=== PATIENT | female | born 1940 | race Caucasian/White ===

== ENCOUNTER 2017-10-25 16:28 | Inpatient (IN) | payer MEDICARE, MEDICAID ==
[~2017-10-25] VITALS: Ht 162.6 cm; Wt 111.3 kg
[~2017-10-25 16:28] MED LIST: TYLENOL325 MG ORAL
[2017-10-25 17:12] VITALS: BP 124/59
[2017-10-25 17:29] LABS: BASOPHILS % (AUTO) 1.6 % (0.0-2.0); EOSINOPHILS % (AUTO) 1.9 % (0.0-3.0); HEMATOCRIT 38.9 % (37.0-47.0); HEMOGLOBIN 12.2 G/DL (12.0-16.0); LYMPHOCYTES % (AUTO) 22.5 % (20.0-45.0); MEAN CORPUSCULAR VOLUME 79 FL (80-99); NEUTROPHILS % (AUTO) 60.1 % (45.0-75.0); PLATELET COUNT 168 K/UL (150-450); RED BLOOD COUNT 4.95 M/UL (4.20-5.40); RED CELL DISTRIBUTION WIDTH 19.4 % (11.6-14.8); WHITE BLOOD COUNT 5.9 K/UL (4.8-10.8)
[2017-10-25 17:34] LABS: ANION GAP 9 mmol/L (5-15); BLOOD UREA NITROGEN 10 mg/dL (7-18); CALCIUM 9.3 MG/DL (8.5-10.1); CARBON DIOXIDE 26 MMOL/L (21-32); CHLORIDE 107 MMOL/L (98-107); CREATININE 0.9 MG/DL (0.55-1.30); POTASSIUM 3.8 MMOL/L (3.5-5.1); SODIUM 142 MMOL/L (136-145)
--- NOTE | 2017-10-25 17:40 | Cardiac Electrophysiology PN ---
Subjective Subjective [id number] Objective Last 24 Hour Vital Signs Date Time Temp Pulse Resp B/P (MAP) Pulse Ox O2 Delivery O2 Flow Rate FiO2 10/25/17 17:12 101 28 124/59 94 Room Air 10/25/17 16:21 98.0 100 18 117/62 99 Room Air 98.1 Laboratory Tests Test 10/25/17 17:05 White Blood Count 5.9 K/UL (4.8-10.8) Red Blood Count 4.95 M/UL (4.20-5.40) Hemoglobin 12.2 G/DL (12.0-16.0) Hematocrit 38.9 % (37.0-47.0) Mean Corpuscular Volume 79 FL (80-99) L Mean Corpuscular Hemoglobin 24.6 PG (27.0-31.0) L Mean Corpuscular Hemoglobin Concent 31.3 G/DL (32.0-36.0) L Red Cell Distribution Width 19.4 % (11.6-14.8) H Platelet Count 168 K/UL (150-450) Mean Platelet Volume 9.0 FL (6.5-10.1) Neutrophils (%) (Auto) 60.1 % (45.0-75.0) Lymphocytes (%) (Auto) 22.5 % (20.0-45.0) Monocytes (%) (Auto) 14.0 % (1.0-10.0) H Eosinophils (%) (Auto) 1.9 % (0.0-3.0) Basophils (%) (Auto) 1.6 % (0.0-2.0) Sodium Level 142 MMOL/L (136-145) Potassium Level 3.8 MMOL/L (3.5-5.1) Chloride Level 107 MMOL/L (98-107) Carbon Dioxide Level 26 MMOL/L (21-32) Anion Gap 9 mmol/L (5-15) Blood Urea Nitrogen 10 mg/dL (7-18) Creatinine 0.9 MG/DL (0.55-1.30) Estimat Glomerular Filtration Rate mL/min (>60) Glucose Level 118 MG/DL (74-106) H Calcium Level 9.3 MG/DL (8.5-10.1) Total Bilirubin Pending Aspartate Amino Transf (AST/SGOT) Pending Alanine Aminotransferase (ALT/SGPT) Pending Alkaline Phosphatase Pending Total Creatine Kinase Pending Creatine Kinase MB Pending Troponin I Pending Pro-B-Type Natriuretic Peptide Pending Total Protein Pending Albumin Pending Globulin Pending Paul Salas MD October 25, 2017 17:40
[2017-10-25] MEDS ORDERED: XARELTO20 MG ORAL (17:46)
[2017-10-25] MEDS ORDERED: LISINOPRIL10 MG ORAL (17:46)
[2017-10-25] MEDS ORDERED: DIGOXIN250 MCG ORAL (17:46)
[2017-10-25 17:49] LABS: ALANINE AMINOTRANSFERASE 16 U/L (12-78); ALBUMIN 3.6 G/DL (3.4-5.0); ALBUMIN/GLOBULIN RATIO 0.8 (1.0-2.7); ALKALINE PHOSPHATASE 88 U/L (46-116); ASPARTATE AMINO TRANSFERASE 20 U/L (15-37); BILIRUBIN,DIRECT 0.8 MG/DL (0.0-0.3); CKMB 0.8 NG/ML (0.0-3.6); CREATINE KINASE 42 U/L (26-308)
--- NOTE | 2017-10-25 18:13 | Emergency Room Report ---
History of Present Illness General Chief Complaint: Generalized Weakness Source: Patient Present Illness HPI 76-year-old female who presents ED for evaluation. Patient brought in by EMS for increased shortness of breath and weakness. Leg swelling. History of CHF. Noncompliant with her medications. Came from PMD office Dr. Hansen. Denies any chest pain. Denies any fevers or chills. Denies cough. States symptoms have been persisting for several weeks now but got worse in the last week. Patient also states she doesn't have a place to live. Has been living in a garage until today. No other aggravating relieving factors. Denies any other associated symptoms Allergies: Coded Allergies: SULFA (SULFONAMIDE ANTIBIOTICS) (Verified Allergy, Severe, 03/23/15) Patient History Past Medical History: HTN, CHF Past Surgical History: none Pertinent Family History: none Social History: Denies: smoking, alcohol use, drug use Now: No Immunizations: UTD Reviewed Nursing Documentation: PMH: Agreed; PSxH: Agreed Nursing Documentation-PMH Hx Hypertension: Yes Hx Diabetes: Yes - menier's, hepatitis Review of Systems All Other Systems: negative except mentioned in HPI Physical Exam Vital Signs Date Time Temp Pulse Resp B/P (MAP) Pulse Ox O2 Delivery O2 Flow Rate FiO2 10/25/17 16:21 98.0 100 18 117/62 99 Room Air 98.1 Sp02 EP Interpretation: reviewed, normal General Appearance: no apparent distress, alert, GCS 15, non-toxic Head: normocephalic, atraumatic Eyes: bilateral eye normal inspection, bilateral eye PERRL ENT: hearing grossly normal, normal pharynx, no angioedema, normal voice Neck: full range of motion, supple/symm/no masses Respiratory: chest non-tender, lungs clear, normal breath sounds, speaking full sentences Cardiovascular #1: regular rate, rhythm, no edema Cardiovascular #2: 2+ carotid (R), 2+ carotid (L), 2+ radial (R), 2+ radial (L) , 2+ dorsalis pedis (R), 2+ dorsalis pedis (L) Gastrointestinal: normal bowel sounds, non tender, soft, non-distended, no guarding, no rebound Rectal: deferred Genitourinary: normal inspection, no CVA tenderness Musculoskeletal: back normal, gait/station normal, normal range of motion, swelling - 2+ pitting edema b/l LEs Neurologic: alert, oriented x3, responsive, motor strength/tone normal, sensory intact, speech normal Psychiatric: judgement/insight normal, memory normal, mood/affect normal, no suicidal/homicidal ideation Reflexes: 3+ bicep (R), 3+ bicep (L), 3+ tricep (R), 3+ tricep (L), 3+ knee (R) , 3+ knee (L) Skin: normal color, no rash, warm/dry, well hydrated Lymphatic: no adenopathy Medical Decision Making Diagnostic Impression: Primary Impression: CHF exacerbation Qualified Codes: I50.9 - Heart failure, unspecified Additional Impression: Atrial fibrillation Qualified Codes: I48.91 - Unspecified atrial fibrillation ER Course Hospital Course 76-year-old female presents ED complaining of shortness of breath, leg swelling Differential diagnoses include: DE/unstable angina, contusion, muscle strain, PTX, rib fracture Clinical course Patient placed on stretcher. on roll filler. After initial history and physical I ordered labs, EKG, chest x-ray, dopplers labs reviewed- no leukocytosis, hemoglobin/hematocrit stable, creatinine elevated, troponins negative, BNP elevated doppler US - negative for DVT Chest x-ray- pulmonary congestion, effusion ? infiltrate. EKG - afib, no acute ischemic changes interpreted by me patient afebrile. denying cough. Lasix given. abx given. Case discussed with Dr. Hansen and he agreed to accept the patient to his service for further care and support I. I feel this is a highly complex case requiring extensive working including EKG/Rhythm strip, Xray/CT/US, Blood/urine lab work, repeat exams while in ED, and administration of strong opiates/narcotics for pain control, admission to hospital or close patient follow up. Diagnosis - CHF exacerbation, atrial fibrillation admitted to telemetry in serious condition Labs Test 10/25/17 17:05 White Blood Count 5.9 K/UL (4.8-10.8) Red Blood Count 4.95 M/UL (4.20-5.40) Hemoglobin 12.2 G/DL (12.0-16.0) Hematocrit 38.9 % (37.0-47.0) Mean Corpuscular Volume 79 FL (80-99) Mean Corpuscular Hemoglobin 24.6 PG (27.0-31.0) Mean Corpuscular Hemoglobin Concent 31.3 G/DL (32.0-36.0) Red Cell Distribution Width 19.4 % (11.6-14.8) Platelet Count 168 K/UL (150-450) Mean Platelet Volume 9.0 FL (6.5-10.1) Neutrophils (%) (Auto) 60.1 % (45.0-75.0) Lymphocytes (%) (Auto) 22.5 % (20.0-45.0) Monocytes (%) (Auto) 14.0 % (1.0-10.0) Eosinophils (%) (Auto) 1.9 % (0.0-3.0) Basophils (%) (Auto) 1.6 % (0.0-2.0) Sodium Level 142 MMOL/L (136-145) Potassium Level 3.8 MMOL/L (3.5-5.1) Chloride Level 107 MMOL/L (98-107) Carbon Dioxide Level 26 MMOL/L (21-32) Anion Gap 9 mmol/L (5-15) Blood Urea Nitrogen 10 mg/dL (7-18) Creatinine 0.9 MG/DL (0.55-1.30) Estimat Glomerular Filtration Rate mL/min (>60) Glucose Level 118 MG/DL (74-106) Calcium Level 9.3 MG/DL (8.5-10.1) Total Bilirubin 2.0 MG/DL (0.2-1.0) Direct Bilirubin 0.8 MG/DL (0.0-0.3) Aspartate Amino Transf (AST/SGOT) 20 U/L (15-37) Alanine Aminotransferase (ALT/SGPT) 16 U/L (12-78) Alkaline Phosphatase 88 U/L (46-116) Total Creatine Kinase 42 U/L (26-308) Creatine Kinase MB 0.8 NG/ML (0.0-3.6) Creatine Kinase MB Relative Index 1.9 Troponin I 0.000 ng/mL (0.000-0.056) Pro-B-Type Natriuretic Peptide 606 pg/mL (0-125) Total Protein 7.9 G/DL (6.4-8.2) Albumin 3.6 G/DL (3.4-5.0) Globulin 4.3 g/dL Albumin/Globulin Ratio 0.8 (1.0-2.7) EKG Diagnostic Results Rate: normal Rhythm: other - afib ST Segments: no acute changes ASA given to the pt in ED: No Rhythm Strip Diag. Results EP Interpretation: yes Rhythm: NSR, no PVC's, no ectopy Chest X-Ray Diagnostic Results Chest X-Ray Diagnostic Results : Chest X-Ray Ordered: Yes # of Views/Limited/Complete: 1 View Indication: Shortness of Breath EP Interpretation: Yes Interpretation: no consolidation, no pneumothorax, other - cardiomegaly. effusion Impression: Other - chf Electronically Signed by: Electronically signed by Marcellus Spears MD CT/MRI/US Diagnostic Results CT/MRI/US Diagnostic Results : Imaging Test Ordered: venous duplex Impression no evidence of DVT bilaterally Last Vital Signs Date Time Temp Pulse Resp B/P (MAP) Pulse Ox O2 Delivery O2 Flow Rate FiO2 10/25/17 17:12 101 28 124/59 94 Room Air 10/25/17 16:21 98.0 98.1 Status: improved Disposition: ADMITTED INPATIENT Condition: Serious Marcellus Spears MD October 25, 2017 18:13
[2017-10-25 19:30] VITALS: BP 112/69
[2017-10-25 21:10] VITALS: BP 117/56
[2017-10-25 22:00] VITALS: BP 120/58
--- NOTE | 2017-10-25 22:15 | Consultation ---
DATE OF CONSULTATION: 10/25/2017 CARDIOLOGY CONSULTATION CONSULTING PHYSICIAN: Paul Salas M.D. REFERRING PHYSICIAN: Caio Hansen M.D. REASON FOR CONSULTATION: Shortness of breath, lower extremity edema, as well as atrial fibrillation. HISTORY OF PRESENT ILLNESS: The patient is a very pleasant 76-year-old lady with history of hypertension and paroxysmal atrial fibrillation, who was brought in by ambulance from Dr. Hansen's office for increasing shortness of breath and increasing lower extremity edema. The patient has also recently become homeless and wants a placement in assisted living facility. PAST MEDICAL HISTORY: 1. Hypertension. 2. Atrial fibrillation. 3. Congestive heart failure. MEDICATIONS: Per reconciliation and includes digoxin and Xarelto. FAMILY HISTORY: Noncontributory. REVIEW OF SYSTEMS: Review of systems was performed and was negative other than what was mentioned in the history of present illness. PHYSICAL EXAMINATION: VITAL SIGNS: Blood pressure is 110/70, pulse of 70, respirations of 18, and she is afebrile. HEAD AND NECK: Shows no JVD or carotid bruits. LUNGS: Decreased breath sounds. CARDIOVASCULAR: Regular S1 and S2 with no gallop or murmur. ABDOMEN: Soft. EXTREMITIES: Show 2+ pitting edema. LABORATORY DATA: Labs show white count of 5.9, hemoglobin 12.2, hematocrit of 38.9, and platelet count of 168,000. Chemistry is pending. ASSESSMENT AND PLAN: 1. Exacerbation of congestive heart failure. lower extremity edema. We will start the patient on Lasix 40 mg IV b.i.d. We will get an echocardiogram and lower extremity Doppler. Troponin and BNP is pending. 2. Atrial fibrillation, the rate is slightly elevated. We will check digoxin level. We will start the patient on metoprolol 25 mg b.i.d. and digoxin. 3. Hypertension. Continue Lopressor, that will help the atrial fibrillation as well. 4. Homelessness. Placement in assisted living per Dr. Hansen. Thank you very much, Dr. Hansen, for allowing me to participate in the care of this patient. Please do not hesitate to contact me if you have any questions regarding my evaluation. The case was discussed with the emergency room physician and Dr. Hansen as well. Paul Salas M.D. DR: MICHAEL JOB#: [id number] CC:
[2017-10-25] MEDS: Metoprolol 25mg tab ORAL SCH (22:31)
[2017-10-25] MEDS: Docusate 100mg cap ORAL SCH (22:31)
[2017-10-26] VITALS: BP 106/53
[2017-10-26 04:00] VITALS: BP 106/57
[2017-10-26 07:20] LABS: BASOPHILS % (AUTO) 1.2 % (0.0-2.0); HEMATOCRIT 37.2 % (37.0-47.0); HEMOGLOBIN 11.6 G/DL (12.0-16.0); LYMPHOCYTES % (AUTO) 21.2 % (20.0-45.0); MEAN CORPUSCULAR VOLUME 79 FL (80-99); MONOCYTES % (AUTO) 13.4 % (1.0-10.0); NEUTROPHILS % (AUTO) 61.2 % (45.0-75.0); PLATELET COUNT 160 K/UL (150-450); RED BLOOD COUNT 4.73 M/UL (4.20-5.40); RED CELL DISTRIBUTION WIDTH 19.2 % (11.6-14.8); WHITE BLOOD COUNT 6.3 K/UL (4.8-10.8)
[2017-10-26 07:33] LABS: INR 1.6 (0.9-1.1)
[2017-10-26 07:50] LABS: ALANINE AMINOTRANSFERASE 16 U/L (12-78); ALBUMIN 3.5 G/DL (3.4-5.0); ALBUMIN/GLOBULIN RATIO 0.9 (1.0-2.7); ALKALINE PHOSPHATASE 89 U/L (46-116); ANION GAP 9 mmol/L (5-15); ASPARTATE AMINO TRANSFERASE 19 U/L (15-37); BILIRUBIN,TOTAL 1.6 MG/DL (0.2-1.0); BLOOD UREA NITROGEN 9 mg/dL (7-18); CALCIUM 9.2 MG/DL (8.5-10.1); CARBON DIOXIDE 29 MMOL/L (21-32); CHLORIDE 105 MMOL/L (98-107); CHOLESTEROL 146 MG/DL (< 200); CREATININE 0.9 MG/DL (0.55-1.30); HDL CHOLESTEROL 38 MG/DL (40-60); POTASSIUM 3.8 MMOL/L (3.5-5.1); SODIUM 143 MMOL/L (136-145); TRIGLYCERIDES 84 MG/DL (30-150)
[2017-10-26 07:55] LABS: BILIRUBIN,DIRECT 0.6 MG/DL (0.0-0.3)
[2017-10-26 08:00] VITALS: BP 104/55
[2017-10-26] MEDS ORDERED: Docusate 100mg cap ORAL SCH (09:00)
[2017-10-26] MEDS: Lisinopril 20mg tab ORAL SCH (09:00)
[2017-10-26] MEDS ORDERED: Xarelto 10mg tab ORAL SCH (09:00)
[2017-10-26] MEDS: Docusate 100mg cap ORAL SCH ×2 (09:19→17:38)
[2017-10-26] MEDS: Xarelto 10mg tab ORAL SCH (09:19)
[2017-10-26] MEDS: Metoprolol 25mg tab ORAL SCH (09:20)
[2017-10-26 12:00] VITALS: BP 131/72
--- NOTE | 2017-10-26 12:33 | Diagnostic Imaging Report ---
Indication: Dyspnea Technique: XRAY Chest 1v Comparison: None Findings: Heart is enlarged. There is bilateral interstitial and airspace opacities with dense opacities in the right lung base. There is small bilateral pleural effusions. There is lucency in the expected region of the left costophrenic sulcus which is likely artifactual related to adjacent bowel loops in the left upper quadrant. A deep sulcus sign suggesting a pneumothorax is not entirely excluded. Repeat exam recommended for further evaluation. There is osteopenia, scoliosis and degenerative change of the spine. No acute osseous abnormality seen. IMPRESSION: Cardiomegaly with bilateral interstitial and airspace opacities and small bilateral pleural effusions most likely representing pulmonary edema. Superimposed pneumonia should be excluded clinically. Suggestive of a deep sulcus sign on the left, likely artifactual. The remote possibility of a pneumothorax is not entirely excluded and repeat exam recommended. This was discussed with the patient's treating nurse on 2 E. via telephone conversation 10/26/2017.
--- NOTE | 2017-10-26 13:36 | Cardiology Report ---
APPROVED REPORT [employer] DIMENSIONS IVSd1.2 (0.7-1.1cm)Left Atrium (MM)4.7 (1.6-4.0cm) LVDd4.3 (3.5-5.6cm)Aortic Root2.9 (2.0-3.7cm) PWd1.3 (0.7-1.1cm)Aortic Cusp Exc.2.0 (1.5-2.0cm) LVDs2.9 (2.5-4.0cm) PWs1.4 cm Normal left ventricular chamber size, systolic function and wall motion. Left ventricular ejection fraction estimated to be 55 %. Mild left ventricular hypertrophy. Area of fluid collection noted behind the LA, cannot r/o loculated pleural effusion vs dilated cardiac vein. Moderate bi-atrial enalrgement. Mild right ventricular enlargement. Aortic valve calcification with decreased cusp excursion c/w aortic stenosis. Mildly thickened mitral valve leaflets with normal excursion. Mild mitral annulus and aortic root calcification. Normal pulmonic valve structure. Normal tricuspid valve structure. IVC dilated at 2.4 cm without physiological collapse, estimated RAP is 15 mmHg. A color flow and spectral Doppler study was performed and revealed: Mild to moderate aortic insufficiency. peak aortic valve gradient of 31 mmHg and a mean of 13 mmHg. Aortic valve area 1.5 cm2 calculated by continuity equation. Moderate mitral regurgitation. Left ventricular diastolic function could not be determined due to A-Fib. Moderate to severe tricuspid regurgitation. Tricuspid systolic velocities suggests peak right ventricular systolic pressure of 77 mmHg, consistent with severe pulmonary hypertension. Trace pulmonic regurgitation present.
--- NOTE | 2017-10-26 15:20 | Cardiac Electrophysiology PN ---
Assessment/Plan Assessment/Plan 1. Exacerbation of congestive heart failure. On Lasix 40 mg IV b.i.d. Echocardiogram showed Nl EF and lower extremity Doppler no DVT . Troponin and BNP is pending. 2. Atrial fibrillation, the rate is better. On metoprolol 25 mg b.i.d.,digoxin and Xarelto 20 daily 3. Hypertension. Continue Lopressor and Lisinopril 10 daily 4. Homelessness. Placement in assisted living per Dr. Hansen. 5. Area of fluid collection noted behind the LA, cannot r/o loculated pleural effusion vs dilated cardiac vein. Will get Chest CT 6. Severe pulmonary HTN [address] Greenberg re echo finding Subjective Subjective Feeling better on tele in SR Objective Last 24 Hour Vital Signs Date Time Temp Pulse Resp B/P (MAP) Pulse Ox O2 Delivery O2 Flow Rate FiO2 10/26/17 12:00 97.3 91 18 131/72 94 Room Air 97.3 10/26/17 12:00 86 10/26/17 09:22 94 10/26/17 09:20 94 104/55 10/26/17 09:20 94 104/55 10/26/17 09:00 104/55 10/26/17 08:00 97.2 94 21 104/55 94 Room Air 97.2 10/26/17 08:00 88 10/26/17 04:00 78 10/26/17 04:00 97.5 76 20 106/57 95 Room Air 97.5 10/26/17 00:00 98.0 86 20 106/53 96 Room Air 98.0 10/26/17 00:00 77 10/25/17 22:31 107 120/58 10/25/17 22:10 101 10/25/17 22:00 97.2 107 20 120/58 98 Room Air 97.2 10/25/17 21:15 98.3 90 20 117/56 97 Room Air 98.3 10/25/17 21:10 90 20 117/56 97 Room Air 10/25/17 19:30 98.3 106 16 112/69 96 Room Air 98.3 10/25/17 17:12 101 28 124/59 94 Room Air 10/25/17 16:21 98.0 100 18 117/62 99 Room Air 98.1 Intake and Output 10/25/17 10/26/17 19:00 07:00 Intake Total 480 ml Output Total 2400 ml Balance -1920 ml Intake Oral 480 ml Output Urine Total 2400 ml # Voids 7 Laboratory Tests Test 10/25/17 17:05 10/26/17 05:50 White Blood Count 5.9 K/UL (4.8-10.8) 6.3 K/UL (4.8-10.8) Red Blood Count 4.95 M/UL (4.20-5.40) 4.73 M/UL (4.20-5.40) Hemoglobin 12.2 G/DL (12.0-16.0) 11.6 G/DL (12.0-16.0) L Hematocrit 38.9 % (37.0-47.0) 37.2 % (37.0-47.0) Mean Corpuscular Volume 79 FL (80-99) L 79 FL (80-99) L Mean Corpuscular Hemoglobin 24.6 PG (27.0-31.0) L 24.5 PG (27.0-31.0) L Mean Corpuscular Hemoglobin Concent 31.3 G/DL (32.0-36.0) L 31.2 G/DL (32.0-36.0) L Red Cell Distribution Width 19.4 % (11.6-14.8) H 19.2 % (11.6-14.8) H Platelet Count 168 K/UL (150-450) 160 K/UL (150-450) Mean Platelet Volume 9.0 FL (6.5-10.1) 8.9 FL (6.5-10.1) Neutrophils (%) (Auto) 60.1 % (45.0-75.0) 61.2 % (45.0-75.0) Lymphocytes (%) (Auto) 22.5 % (20.0-45.0) 21.2 % (20.0-45.0) Monocytes (%) (Auto) 14.0 % (1.0-10.0) H 13.4 % (1.0-10.0) H Eosinophils (%) (Auto) 1.9 % (0.0-3.0) 3.0 % (0.0-3.0) Basophils (%) (Auto) 1.6 % (0.0-2.0) 1.2 % (0.0-2.0) Sodium Level 142 MMOL/L (136-145) 143 MMOL/L (136-145) Potassium Level 3.8 MMOL/L (3.5-5.1) 3.8 MMOL/L (3.5-5.1) Chloride Level 107 MMOL/L (98-107) 105 MMOL/L (98-107) Carbon Dioxide Level 26 MMOL/L (21-32) 29 MMOL/L (21-32) Anion Gap 9 mmol/L (5-15) 9 mmol/L (5-15) Blood Urea Nitrogen 10 mg/dL (7-18) 9 mg/dL (7-18) Creatinine 0.9 MG/DL (0.55-1.30) 0.9 MG/DL (0.55-1.30) Estimat Glomerular Filtration Rate mL/min (>60) mL/min (>60) Glucose Level 118 MG/DL (74-106) H 104 MG/DL (74-106) Calcium Level 9.3 MG/DL (8.5-10.1) 9.2 MG/DL (8.5-10.1) Total Bilirubin 2.0 MG/DL (0.2-1.0) H 1.6 MG/DL (0.2-1.0) H Direct Bilirubin 0.8 MG/DL (0.0-0.3) H 0.6 MG/DL (0.0-0.3) H Aspartate Amino Transf (AST/SGOT) 20 U/L (15-37) 19 U/L (15-37) Alanine Aminotransferase (ALT/SGPT) 16 U/L (12-78) 16 U/L (12-78) Alkaline Phosphatase 88 U/L (46-116) 89 U/L (46-116) Total Creatine Kinase 42 U/L (26-308) Creatine Kinase MB 0.8 NG/ML (0.0-3.6) Creatine Kinase MB Relative Index 1.9 Troponin I 0.000 ng/mL (0.000-0.056) 0.000 ng/mL (0.000-0.056) Pro-B-Type Natriuretic Peptide 606 pg/mL (0-125) H 572 pg/mL (0-125) H Total Protein 7.9 G/DL (6.4-8.2) 7.6 G/DL (6.4-8.2) Albumin 3.6 G/DL (3.4-5.0) 3.5 G/DL (3.4-5.0) Globulin 4.3 g/dL 4.1 g/dL Albumin/Globulin Ratio 0.8 (1.0-2.7) L 0.9 (1.0-2.7) L Prothrombin Time 16.9 SEC (9.30-11.50) H Prothromb Time International Ratio 1.6 (0.9-1.1) H Hemoglobin A1c 5.5 % (4.3-6.0) Triglycerides Level 84 MG/DL (30-150) Cholesterol Level 146 MG/DL (< 200) LDL Cholesterol 103 mg/dL (<100) H HDL Cholesterol 38 MG/DL (40-60) L Cholesterol/HDL Ratio 3.8 (3.3-4.4) Thyroid Stimulating Hormone (TSH) 3.114 uiU/mL (0.358-3.740) Free Thyroxine 1.31 NG/DL (0.76-1.46) Digoxin Level 0.9 NG/ML (0.9-2.0) Objective HEAD AND NECK: Shows no JVD or carotid bruits. LUNGS: Decreased breath sounds. CARDIOVASCULAR: Regular S1 and S2 with no gallop or murmur. ABDOMEN: Soft. EXTREMITIES: Show 2+ pitting edema. Paul Salas MD October 26, 2017 15:20
[2017-10-26] MEDS ORDERED: Isovue-300 100ml vial INJ PRN (15:30)
[2017-10-26 16:00] VITALS: BP 138/60
--- NOTE | 2017-10-26 17:27 | Diagnostic Imaging Report ---
Indication: Shortness of breath Technique: XRAY Chest 1v Comparison: 08/27/2017 Findings: Stable cardiomegaly. There is interstitial opacification/edema, bilateral patchy airspace opacities and small right pleural effusion. There is no definite pneumothorax. There is scoliosis and degenerative change of the spine. No acute osseous abnormality is appreciated. Impression: Cardiomegaly with bilateral interstitial and patchy airspace opacities and small right pleural effusion. No definite pneumothorax.
[2017-10-26 20:00] VITALS: BP 119/65
[2017-10-26] MEDS: Milk of Magnesia 30ml Ud ORAL PRN (22:00)
[2017-10-26] MEDS: Zolpidem 5mg tab ORAL PRN (22:00)
[2017-10-27] VITALS: BP 112/61
[2017-10-27 08:00] VITALS: BP 158/89
[2017-10-27 08:36] LABS: EOSINOPHILS % (AUTO) 4.6 % (0.0-3.0); HEMATOCRIT 34.2 % (37.0-47.0); HEMOGLOBIN 11.3 G/DL (12.0-16.0); MEAN CORPUSCULAR VOLUME 78 FL (80-99); MONOCYTES % (AUTO) 13.8 % (1.0-10.0); NEUTROPHILS % (AUTO) 51.6 % (45.0-75.0); PLATELET COUNT 154 K/UL (150-450); RED BLOOD COUNT 4.38 M/UL (4.20-5.40)
[2017-10-27] MEDS: Xarelto 10mg tab ORAL SCH (09:00)
[2017-10-27] MEDS: Docusate 100mg cap ORAL SCH ×2 (09:42→16:59)
[2017-10-27] MEDS: Lisinopril 20mg tab ORAL SCH (09:43)
[2017-10-27] MEDS: Metoprolol 25mg tab ORAL SCH ×2 (09:43→21:00)
[2017-10-27 12:00] VITALS: BP 90/52
--- NOTE | 2017-10-27 15:56 | Cardiac Electrophysiology PN ---
Assessment/Plan Assessment/Plan 1. Exacerbation of congestive heart failure due to diastolic dysfunction. Decrease Lasix to40 mg IV daily. Echocardiogram showed Nl EF and lower extremity Doppler no DVT . 2. Atrial fibrillation, the rate is better. On metoprolol 25 mg b.i.d., digoxin and Xarelto 20 daily 3. Hypertension. Continue Lopressor and DC Lisinopril 10 daily 4. Homelessness. Placement in assisted living per Dr. Hansen. 5. Area of fluid collection noted behind the LA, can not r/o loculated pleural effusion vs dilated cardiac vein. Refused Chest CT 6. Severe pulmonary HTN 75 [address] RN Subjective Subjective Feeling better on tele in SR. BP in 90s after she got CHF meds Objective Last 24 Hour Vital Signs Date Time Temp Pulse Resp B/P (MAP) Pulse Ox O2 Delivery O2 Flow Rate FiO2 10/27/17 12:00 69 10/27/17 12:00 96.8 82 20 90/52 93 Room Air 96.8 10/27/17 09:43 158/84 10/27/17 09:43 100 158/84 10/27/17 09:42 100 10/27/17 08:00 93 10/27/17 08:00 97.7 110 20 158/89 93 Room Air 97.7 10/27/17 04:00 82 10/27/17 00:00 98.0 91 20 112/61 93 Room Air 98.0 10/26/17 23:41 80 10/26/17 20:02 87 10/26/17 20:00 98.3 95 20 119/65 94 Room Air 98.3 10/26/17 16:00 85 10/26/17 16:00 97.3 78 18 138/60 95 Room Air 97.3 Intake and Output 10/26/17 10/27/17 19:00 07:00 Intake Total 550 ml Balance 550 ml Intake Oral 550 ml # Voids 2 3 Laboratory Tests Test 10/27/17 06:27 White Blood Count 6.0 K/UL (4.8-10.8) Red Blood Count 4.38 M/UL (4.20-5.40) Hemoglobin 11.3 G/DL (12.0-16.0) L Hematocrit 34.2 % (37.0-47.0) L Mean Corpuscular Volume 78 FL (80-99) L Mean Corpuscular Hemoglobin 25.8 PG (27.0-31.0) L Mean Corpuscular Hemoglobin Concent 33.0 G/DL (32.0-36.0) Red Cell Distribution Width 19.0 % (11.6-14.8) H Platelet Count 154 K/UL (150-450) Mean Platelet Volume 9.1 FL (6.5-10.1) Neutrophils (%) (Auto) 51.6 % (45.0-75.0) Lymphocytes (%) (Auto) 29.0 % (20.0-45.0) Monocytes (%) (Auto) 13.8 % (1.0-10.0) H Eosinophils (%) (Auto) 4.6 % (0.0-3.0) H Basophils (%) (Auto) 1.0 % (0.0-2.0) Pro-B-Type Natriuretic Peptide 586 pg/mL (0-125) H Digoxin Level 0.8 NG/ML (0.9-2.0) L Objective HEAD AND NECK: Shows no JVD or carotid bruits. LUNGS: Decreased breath sounds. CARDIOVASCULAR: Regular S1 and S2 with no gallop or murmur. ABDOMEN: Soft. EXTREMITIES: Show 2+ pitting edema. Paul Salas MD October 27, 2017 15:56
[2017-10-27 16:00] VITALS: BP 105/53
[2017-10-27 20:00] VITALS: BP 108/53
--- NOTE | 2017-10-27 21:33 | General Progress Note ---
Assessment/Plan Assessment/Plan chf afib obesisty cho noted good EF on xarelto diuresis dw Dr Cervantes stress test ? patient refused chest ct will need placement Subjective Allergies: Coded Allergies: SULFA (SULFONAMIDE ANTIBIOTICS) (Verified Allergy, Severe, 03/23/15) Subjective breathng better overall no cp Objective Last 24 Hour Vital Signs Date Time Temp Pulse Resp B/P (MAP) Pulse Ox O2 Delivery O2 Flow Rate FiO2 10/27/17 21:00 81 108/53 10/27/17 20:00 98.3 81 18 108/53 94 Room Air 98.3 10/27/17 16:00 98.0 74 22 105/53 92 Room Air 98.0 10/27/17 16:00 70 10/27/17 12:00 69 10/27/17 12:00 96.8 82 20 90/52 93 Room Air 96.8 10/27/17 09:43 158/84 10/27/17 09:43 100 158/84 10/27/17 09:42 100 10/27/17 08:00 93 10/27/17 08:00 97.7 110 20 158/89 93 Room Air 97.7 10/27/17 04:00 82 10/27/17 00:00 98.0 91 20 112/61 93 Room Air 98.0 10/26/17 23:41 80 Intake and Output 10/26/17 10/27/17 19:00 07:00 Intake Total 550 ml Balance 550 ml Intake Oral 550 ml # Voids 2 3 Laboratory Tests 10/27/17 06:27: White Blood Count 6.0, Red Blood Count 4.38, Hemoglobin 11.3L, Hematocrit 34.2L , Mean Corpuscular Volume 78L, Mean Corpuscular Hemoglobin 25.8L, Mean Corpuscular Hemoglobin Concent 33.0, Red Cell Distribution Width 19.0H, Platelet Count 154, Mean Platelet Volume 9.1, Neutrophils (%) (Auto) 51.6, Lymphocytes (%) (Auto) 29.0, Monocytes (%) (Auto) 13.8H, Eosinophils (%) (Auto) 4.6H, Basophils (%) (Auto) 1.0, Pro-B-Type Natriuretic Peptide 586H, Digoxin Level 0.8L Height (Feet): 5 Height (Inches): 4.00 Weight (Pounds): 239 General Appearance: WD/WN Neck: supple Cardiovascular: normal rate, irregularly irregular Respiratory/Chest: lungs clear Abdomen: soft Objective 2 plus edema SHI Cornell October 27, 2017 21:32
[2017-10-27] MEDS: Zolpidem 5mg tab ORAL PRN (23:50)
[2017-10-28] VITALS: BP 122/67
[2017-10-28 04:00] VITALS: BP 121/75
[2017-10-28] MEDS ORDERED: Lexiscan 0.4mg/5ml syringe IV PRN (06:00)
[2017-10-28 08:00] VITALS: BP 119/65
[2017-10-28] MEDS: Docusate 100mg cap ORAL SCH ×2 (08:54→17:01)
[2017-10-28] MEDS: Xarelto 10mg tab ORAL SCH (08:54)
[2017-10-28] MEDS: Metoprolol 25mg tab ORAL SCH ×2 (09:00→20:53)
[2017-10-28 12:00] VITALS: BP 103/53
--- NOTE | 2017-10-28 13:14 | Cardiac Electrophysiology PN ---
Assessment/Plan Assessment/Plan 1. Exacerbation of congestive heart failure due to diastolic dysfunction.On Lasix 40 mg IV daily. Echocardiogram showed Nl EF and lower extremity Doppler no DVT . 2. Atrial fibrillation, the rate is better. On metoprolol 25 mg b.i.d., digoxin and Xarelto 20 daily Refusing stress test now. 3. Hypertension. Continue Lopressor and Lasix and off Lisinopril 10 daily 4. Homelessness. Placement in assisted living per Dr. Hansen. 5. Area of fluid collection noted behind the LA, can not r/o loculated pleural effusion vs dilated cardiac vein. Refused Chest CT 6. 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 Refused Metoprolol as BP was 120s and she was afraid it may drop Objective Last 24 Hour Vital Signs Date Time Temp Pulse Resp B/P (MAP) Pulse Ox O2 Delivery O2 Flow Rate FiO2 10/28/17 12:00 80 10/28/17 12:00 97.5 84 19 103/53 95 Room Air 97.5 10/28/17 08:54 80 10/28/17 08:00 84 10/28/17 08:00 97.3 89 19 119/65 95 Room Air 97.3 10/28/17 04:00 99.4 85 20 121/75 100 Room Air 99.4 10/28/17 04:00 78 10/28/17 00:00 98.0 83 20 122/67 95 Room Air 98.0 10/28/17 00:00 102 10/27/17 21:00 81 108/53 10/27/17 20:00 98.3 81 18 108/53 94 Room Air 98.3 10/27/17 20:00 77 10/27/17 16:00 98.0 74 22 105/53 92 Room Air 98.0 10/27/17 16:00 70 Intake and Output 10/27/17 10/28/17 19:00 07:00 Intake Total 600 ml 400 ml Balance 600 ml 400 ml Intake Oral 600 ml 400 ml # Voids 6 3 # Bowel Movements 2 Microbiology Date/Time Source Procedure Growth Status 10/26/17 04:00 Nasal Nares MRSA Culture - Final NO METHICILLIN RESISTANT STAPH AUREUS... Complete 10/26/17 04:00 Rectum VRE Culture - Final NO VANCOMYCIN RESISTANT ENTEROCOCCUS ... Complete Objective HEAD AND NECK: Shows no JVD or carotid bruits. LUNGS: Decreased breath sounds. CARDIOVASCULAR: Regular S1 and S2 with no gallop or murmur. ABDOMEN: Soft. EXTREMITIES: 2+ pitting edema. Paul Salas MD October 28, 2017 13:14
[2017-10-28 16:00] VITALS: BP 118/56
[2017-10-28] MEDS: Milk of Magnesia 30ml Ud ORAL PRN (17:01)
[2017-10-28 20:00] VITALS: BP 109/60
--- NOTE | 2017-10-28 21:48 | General Progress Note ---
Assessment/Plan Assessment/Plan chf afib obesisty cho noted good EF on xarelto diuresis dw Dr Cervantes stress test ? patient refused chest ct will need placement Subjective Allergies: Coded Allergies: SULFA (SULFONAMIDE ANTIBIOTICS) (Verified Allergy, Severe, 03/23/15) Subjective breathng better overall no cp Objective Last 24 Hour Vital Signs Date Time Temp Pulse Resp B/P (MAP) Pulse Ox O2 Delivery O2 Flow Rate FiO2 10/28/17 20:53 91 119/64 10/28/17 20:00 98.5 83 20 109/60 94 Room Air 98.5 10/28/17 16:00 97.6 85 19 118/56 98 Room Air 97.6 10/28/17 16:00 77 10/28/17 12:00 80 10/28/17 12:00 97.5 84 19 103/53 95 Room Air 97.5 10/28/17 08:54 80 10/28/17 08:00 84 10/28/17 08:00 97.3 89 19 119/65 95 Room Air 97.3 10/28/17 04:00 99.4 85 20 121/75 100 Room Air 99.4 10/28/17 04:00 78 10/28/17 00:00 98.0 83 20 122/67 95 Room Air 98.0 10/28/17 00:00 102 Intake and Output 10/27/17 10/28/17 19:00 07:00 Intake Total 600 ml 400 ml Balance 600 ml 400 ml Intake Oral 600 ml 400 ml # Voids 6 3 # Bowel Movements 2 Height (Feet): 5 Height (Inches): 4.00 Weight (Pounds): 242 General Appearance: WD/WN Neck: supple Cardiovascular: normal rate Respiratory/Chest: lungs clear Abdomen: soft Objective 2 plus edema SHI Cornell October 28, 2017 21:47
[2017-10-29] VITALS: BP 101/54
[2017-10-29] MEDS: Zolpidem 5mg tab ORAL PRN (00:27)
[2017-10-29 04:00] VITALS: BP 100/55
[2017-10-29 08:00] VITALS: BP 114/64
[2017-10-29 08:46] LABS: ALANINE AMINOTRANSFERASE 15 U/L (12-78); ALBUMIN 3.2 G/DL (3.4-5.0); ALBUMIN/GLOBULIN RATIO 0.8 (1.0-2.7); ALKALINE PHOSPHATASE 70 U/L (46-116); ANION GAP 6 mmol/L (5-15); ASPARTATE AMINO TRANSFERASE 19 U/L (15-37); BILIRUBIN,TOTAL 1.5 MG/DL (0.2-1.0); BLOOD UREA NITROGEN 18 mg/dL (7-18); CARBON DIOXIDE 31 MMOL/L (21-32); CHLORIDE 105 MMOL/L (98-107); CREATININE 0.8 MG/DL (0.55-1.30); POTASSIUM 3.6 MMOL/L (3.5-5.1); SODIUM 142 MMOL/L (136-145)
[2017-10-29 08:49] LABS: BILIRUBIN,DIRECT 0.5 MG/DL (0.0-0.3)
[2017-10-29 09:08] VITALS: BP 114/64
[2017-10-29] MEDS: Docusate 100mg cap ORAL SCH (09:08)
[2017-10-29] MEDS: Metoprolol 25mg tab ORAL SCH (09:08)
[2017-10-29] MEDS: Xarelto 10mg tab ORAL SCH (09:09)
[2017-10-29 09:42] LABS: HEMATOCRIT 36.7 % (37.0-47.0); HEMOGLOBIN 11.3 G/DL (12.0-16.0); LYMPHOCYTES % (AUTO) 25.3 % (20.0-45.0); MEAN CORPUSCULAR VOLUME 79 FL (80-99); MONOCYTES % (AUTO) 15.1 % (1.0-10.0); NEUTROPHILS % (AUTO) 51.6 % (45.0-75.0); PLATELET COUNT 171 K/UL (150-450); RED BLOOD COUNT 4.64 M/UL (4.20-5.40); RED CELL DISTRIBUTION WIDTH 18.9 % (11.6-14.8); WHITE BLOOD COUNT 6.3 K/UL (4.8-10.8)
--- NOTE | 2017-10-29 09:59 | Diagnostic Imaging Report ---
APPROVED REPORT CPT Code: 79155 Vascular Symptoms Dizziness and Vertigo Doppler Spectral Velocity Analysis RightLeft RIGHT SIDE: CCA - Imaging reveals no significant plaque within the extracranial carotid arteries. The Doppler spectral flow analysis is within normal limits throughout the extracranial carotid arteries. LEFT SIDE: CCA - Imaging reveals no significant plaque in the common carotid artery. ICA arteries. The Doppler signal indicates the degree of stenosis is minimal (5-10%) in the internal carotid, and (5-10%) in the external carotid arteries. VERTEBRAL- The right and left vertebral arteries were not well visualized. SUBCLAVIAN: The both subclavian arteries were patent.
--- NOTE | 2017-10-29 10:00 | Diagnostic Imaging Report ---
APPROVED REPORT CPT Code: 43036 Present Symptoms Lower Extremity Pain: Bilateral BILATERAL: Imaging reveals a patent deep venous system bilaterally. There is no evidence of thrombus within the femoral, popliteal or tibial segments. The greater saphenous veins are also within normal limits. Doppler indicates normal spontaneous flow within these segments.
--- NOTE | 2017-10-29 13:01 | History and Physical Report ---
DATE OF ADMISSION: 10/25/2017 HISTORY OF PRESENT ILLNESS: The patient is a very pleasant 76-year-old female who has history of CAD, CHF, atrial fibrillation, who had presented to my office yesterday with complaints of increased shortness of breath and chest pain an increasing lower extremity edema. Paramedics were called. The patient was taken to [facility]. She denies any headache. No sore throat. Admits to slight cough. Admits to some chest pressure, increased shortness of breath, dyspnea on exertion, PND, increased lower extremity edema. She denies any abdominal pain. No urinary symptoms. PAST MEDICAL HISTORY: Includes history of atrial fibrillation with rapid ventricular response, history of previous pericardial effusion, history of depressed left ventricular systolic with ejection fraction of 49% based on echo done on 05/27/2016, hypokinesis of basal and inferolateral wall, history of obesity, history of tuberculosis in the past, history of Meniere disease, history of anemia, history of infectious mononucleosis, history of hepatitis in the 60s, history of chronic fatigue syndrome, history of an ulcer with aspirin use. ALLERGIES: Sulfa. SOCIAL HISTORY: She does not smoke. Does not drink any alcohol. She is . She does not have children. She does not have any siblings . REVIEW OF SYSTEMS: Twelve-point review of systems reviewed, negative except for above. PHYSICAL EXAMINATION: GENERAL: This morning, she is well developed, well nourished, currently in no apparent distress. Breathing better. VITAL SIGNS: Blood pressure 104/65, temperature 97.2, saturations 94% on room air. HEENT: Head is normocephalic and atraumatic. Pupils are equal and reactive to light. Extraocular muscles were intact. Eyes were anicteric. NECK: Supple. No JVP. No bruits. LUNGS: Decreased breath sounds. No crackles. EXTREMITIES: pitting edema. ABDOMEN: Soft. Positive bowel sounds. Soft and nontender. LABORATORY AND DIAGNOSTIC DATA: Labs revealed white count of 6.3, hemoglobin 11.6, hematocrit 37.2, and platelet count of 160,000. Sodium 143, potassium 2.8, chloride 105, bicarbonate 29, BUN 9, creatinine 0.9. BNP is 572. Troponin is zero. EKG noted. Chest x-ray showed cardiomegaly with bilateral interstitial and patchy airspace opacity, small right pleural effusion. ASSESSMENT AND PLAN: The patient is a 76-year-old female, who presents to my office with chest pressure, congestive heart failure exacerbation, and was taken by 911 to [facility]. The patient has been admitted to a monitored bed. Cardiology consultation was requested from Dr. Salas. An echo has been ordered. We will monitor his troponins, diurese with Lasix, monitor I's and O's and weights. Continue her on and lisinopril. She has not been taking it beta-matt as well. Caio Hansen M.D. DR: Maty JOB#: [id number] CC: DELMIS
--- NOTE | 2017-10-31 08:19 | Discharge Summary ---
Discharge Summary Discharge Summary Discharge Summary DATE OF ADMISSION: 10/25/2017 DATE OF DISCHARGE: 10/29/2017 REASON FOR ADMISSION: 76 years old female with a past medical history of coronary artery disease, congestive heart failure, atrial fibrillation, hypertension, presented to emergency department on from cloth washer operator office with the complaint of increased shortness of breath and chest pain as well as generalized weakness and lower extremities edema. Patient was sent to emergency department from cloth washer operator office via paramedics. Patient reported persisting symptoms for several weeks, but got worse last week. Patient stated that she had no place to leave. She had been living in garage until this day. Troponin was negative. EKG revealed atrial fibrillation, no acute ischemic changes. Chest x-ray revealed pulmonary congestion. Venous duplex bilateral lower extremity was negative for DVT. Laboratory workup was unremarkable except pro BNP which was elevated- 606, otherwise no leukocytosis, stable hemoglobin and hematocrit ,stable electrolytes. EKG revealed atrial fibrillation with heart rate of 100, no acute ischemic changes. Patient was admitted with CHF exacerbation, atrial fibrillation hypertension. CONSULTANTS: cloth washer operator Dr. Salas HOSPITAL COURSE: Patient admitted to monitored floor. Cardiology consult was requested. Patient started on IV diuresis with close monitoring of cardiorenal parameters and volumes. Strict intake and output was monitored. Toddler Teacher closely followed. Digoxin level was therapeutic. Heart rate was controlled with beta matt and digoxin. Blood pressure was managed with beta matt and TUNDE inhibitor along with Lasix. Patient was on anticoagulation with Xarelto. Echocardiogram revealed ejection fraction of 55%. Mild left ventricular hypertrophy. [id number] aortic insufficiency. Moderate mitral regurgitation. Moderate to severe tricuspid regurgitation. Right ventricular systolic pressure off 77, consistent with severe pulmonary hypertension. Area of fluid collection was noted behind the LA, could not rule out loculated pleural effusion versus dilated cardiac vein. CT of the chest was ordered , however patient declined this test along with a stress test. Placement was found at the senior living facility. Patient was stable for transfer to senior living facility. Reinforced compliance with medication regimen. FINAL DIAGNOSES: Congestive heart failure exacerbation with diastolic dysfunction Atrial fibrillation Hypertension Obesity Severe pulmonary hypertension Homelessness DISCHARGE MEDICATIONS: See Medication Reconciliation list. DISCHARGE INSTRUCTIONS: Patient was discharged to [facility] for further management. Follow up with medical doctor at the facility. I have been assigned to dictate discharge summary for this account. I was not involved in the patient's management. Brian Singleton (Vanchtein)et LARYNGOLOGIST October 31, 2017 08:19
--- NOTE | 2017-10-31 16:33 | Cardiology Report ---
APPROVED REPORT EKG Measurement Heart [id number] Atrial fibrillation Low voltage QRS Nonspecific ST and T wave abnormality Abnormal ECG
== END 2017-10-29 14:05 | DRG 293 ==
LOC: EDBD 16:28 → EMR 17:18 → 2E 19:38 → EDBEDREQ 19:43
DX: I50.33 Acute on chronic diastolic (congestive) heart failure (principal); I10 Essential (primary) hypertension; I27.20 Pulmonary hypertension, unspecified; E66.9 Obesity, unspecified; Z59.0 Homelessness; I34.0 Nonrheumatic mitral (valve) insufficiency; I36.1 Nonrheumatic tricuspid (valve) insufficiency; I25.10 Atherosclerotic heart disease of native coronary artery without angina pectoris; I48.0 Paroxysmal atrial fibrillation; Z79.01 Long term (current) use of anticoagulants
CPT/HCPCS: 36415; 71045; 80053; 80061; 80162; 82248; 82550; 82553; 83036; 83735; 83880; 84439; 84443; 84484; 85025; 85379; 85610; 87081; 93005; 93017; 93306; 93880; 93970; 99285

== ENCOUNTER 2017-11-12 16:32 | Inpatient (IN) | payer MEDICARE, MEDICAID ==
[~2017-11-12] VITALS: Ht 182.9 cm; Wt 100.8 kg
[~2017-11-12 16:32] MED LIST changes: +DIGOXIN250 MCG ORAL; +LISINOPRIL10 MG ORAL; +XARELTO20 MG ORAL
[2017-11-12 16:38] VITALS: BP 119/58
[2017-11-12 17:15] LABS: APPEARANCE,URINE CLEAR; BILIRUBIN, URINE NEGATIVE (NEGATIVE); GLUCOSE, URINE (UA) NEGATIVE (NEGATIVE); KETONES,URINE NEGATIVE (NEGATIVE); LEUKOCYTE ESTERASE ,URINE 2+ (NEGATIVE); NITRITE,URINE NEGATIVE (NEGATIVE); PH,URINE 6.5 (4.5-8.0); PROTEIN,URINE 2+ (NEGATIVE); UROBILINOGEN,URINE 4 MG/DL (0.0-1.0)
--- NOTE | 2017-11-12 17:15 | Emergency Room Report ---
History of Present Illness General Chief Complaint: Chest Pain Source: Patient, EMS Present Illness HPI Patient presents from a senior care facility. She states that there was some escalation of emotions with the staff at the nursing facility and she developed chest pressure. She states she also has been having shortness of breath since the incident. She feels very anxious about the situation. She denies recent illness. She denies cough or congestion. She denies fever or chills. She denies abdominal pain. She states that she does not like the staff at her senior care facility and refuses to return there. She has no other complaints. Allergies: Coded Allergies: SULFA (SULFONAMIDE ANTIBIOTICS) (Verified Allergy, Severe, 03/23/15) Patient History Past Medical History: see triage record, MA, CAD, CHF, AFib Social History: Denies: smoking, alcohol use, drug use Reviewed Nursing Documentation: PMH: Agreed; PSxH: Agreed Nursing Documentation-PMH Past Medical History: No History, Except For Hx Cardiac Problems: Yes - Afib. HF Hx Hypertension: Yes Hx Pacemaker: No Hx Diabetes: Yes - menier's, hepatitis Hx Cancer: No Hx Gastrointestinal Problems: No Review of Systems All Other Systems: negative except mentioned in HPI Physical Exam Vital Signs Date Time Temp Pulse Resp B/P (MAP) Pulse Ox O2 Delivery O2 Flow Rate FiO2 11/12/17 16:28 98.2 80 18 104/76 98 Room Air 98.2 Sp02 EP Interpretation: reviewed, normal General Appearance: no apparent distress, alert, GCS 15, non-toxic Head: normocephalic, atraumatic Eyes: bilateral eye normal inspection, bilateral eye PERRL ENT: hearing grossly normal, normal pharynx, no angioedema, normal voice Neck: full range of motion, supple/symm/no masses Respiratory: chest non-tender, lungs clear, normal breath sounds, speaking full sentences Cardiovascular #1: regular rate, rhythm, no edema Gastrointestinal: normal bowel sounds, non tender, soft, non-distended, no guarding, no rebound Rectal: deferred Musculoskeletal: back normal, normal range of motion, non-tender Neurologic: alert, oriented x3, responsive, motor strength/tone normal, sensory intact, speech normal Psychiatric: judgement/insight normal, memory normal, mood/affect normal, no suicidal/homicidal ideation Skin: normal color, no rash, warm/dry, well hydrated Medical Decision Making Diagnostic Impression: Primary Impression: Chest pain ER Course Elderly female presents with chest pain. She is high risk for acute coronary syndrome. Initial workup is reassuring with a normal troponin and EKG. Also, the patient is unwilling to go back to her senior care facility and may need further case management intervention. Regardless, the patient is admitted to rule out acute coronary syndrome. I have low suspicion for PE or aortic dissection at this time so I did not pursue this any further. Patient overall is well-appearing and nontoxic. The patient is admitted for further evaluation and treatment. Laboratory Tests Test 11/12/17 16:55 11/12/17 17:04 Urine Color Yellow Urine Appearance Clear Urine pH 6.5 (4.5-8.0) Urine Specific [place] 1.015 (1.005-1.035) Urine Protein 2+ (NEGATIVE) H Urine Glucose (UA) Negative (NEGATIVE) Urine Ketones Negative (NEGATIVE) Urine Occult Blood 5+ (NEGATIVE) H Urine Nitrite Negative (NEGATIVE) Urine Bilirubin Negative (NEGATIVE) Urine Urobilinogen 4 MG/DL (0.0-1.0) H Urine Leukocyte Esterase 2+ (NEGATIVE) H Urine RBC 10-15 /HPF (0 - 2) H Urine WBC 5-10 /HPF (0 - 2) H Urine Squamous Epithelial Cells Few /LPF (NONE/OCC) Urine Bacteria Few /HPF (NONE) Urine Yeast Few /HPF (NONE) H White Blood Count 7.6 K/UL (4.8-10.8) Red Blood Count 5.04 M/UL (4.20-5.40) Hemoglobin 12.2 G/DL (12.0-16.0) Hematocrit 39.3 % (37.0-47.0) Mean Corpuscular Volume 78 FL (80-99) L Mean Corpuscular Hemoglobin 24.2 PG (27.0-31.0) L Mean Corpuscular Hemoglobin Concent 31.0 G/DL (32.0-36.0) L Red Cell Distribution Width 17.9 % (11.6-14.8) H Platelet Count 162 K/UL (150-450) Mean Platelet Volume 7.7 FL (6.5-10.1) Neutrophils (%) (Auto) 61.7 % (45.0-75.0) Lymphocytes (%) (Auto) 22.9 % (20.0-45.0) Monocytes (%) (Auto) 11.0 % (1.0-10.0) H Eosinophils (%) (Auto) 2.8 % (0.0-3.0) Basophils (%) (Auto) 1.5 % (0.0-2.0) Prothrombin Time 18.2 SEC (9.30-11.50) H Prothrombin Time INR 1.7 (0.9-1.1) H PTT 41 SEC (23-33) H Sodium Level 141 MMOL/L (136-145) Potassium Level 4.1 MMOL/L (3.5-5.1) Chloride Level 104 MMOL/L (98-107) Carbon Dioxide Level 28 MMOL/L (21-32) Anion Gap 9 mmol/L (5-15) Blood Urea Nitrogen 18 mg/dL (7-18) Creatinine 1.0 MG/DL (0.55-1.30) Estimate Glomerular Filtration Rate mL/min (>60) Glucose Level 115 MG/DL (74-106) H Calcium Level 9.4 MG/DL (8.5-10.1) Total Bilirubin 1.3 MG/DL (0.2-1.0) H Direct Bilirubin 0.6 MG/DL (0.0-0.3) H Aspartate Amino Transferase (AST) 21 U/L (15-37) Alanine Aminotransferase (ALT) 19 U/L (12-78) Alkaline Phosphatase 93 U/L (46-116) Total Creatine Kinase 29 U/L (26-308) Creatine Kinase MB 0.9 NG/ML (0.0-3.6) Creatine Kinase MB Relative Index 3.1 Troponin I 0.000 ng/mL (0.000-0.056) Total Protein 8.0 G/DL (6.4-8.2) Albumin 3.6 G/DL (3.4-5.0) Globulin 4.4 g/dL Albumin/Globulin Ratio 0.8 (1.0-2.7) L EKG Diagnostic Results Rate: normal Rhythm: other - A.fib ST Segments: no acute changes Rhythm Strip Diag. Results EP Interpretation: yes Rate: 80's Rhythm: no PVC's, other - A.fib Chest X-Ray Diagnostic Results Chest X-Ray Diagnostic Results : Chest X-Ray Ordered: Yes # of Views/Limited/Complete: 1 View Indication: Chest Pain EP Interpretation: Yes Interpretation: other - RLL opacity unchanged from comparison on 10/26/2017 Last Vital Signs Date Time Temp Pulse Resp B/P (MAP) Pulse Ox O2 Delivery O2 Flow Rate FiO2 11/12/17 16:28 98.2 80 18 104/76 98 Room Air 98.2 Disposition: ADMITTED INPATIENT Condition: Serious BRO PUGH D.O. November 12, 2017 17:15
[2017-11-12 17:21] LABS: COLOR,URINE YELLOW
[2017-11-12 17:22] LABS: BASOPHILS % (AUTO) 1.5 % (0.0-2.0); EOSINOPHILS % (AUTO) 2.8 % (0.0-3.0); HEMATOCRIT 39.3 % (37.0-47.0); HEMOGLOBIN 12.2 G/DL (12.0-16.0); LYMPHOCYTES % (AUTO) 22.9 % (20.0-45.0); MEAN CORPUSCULAR VOLUME 78 FL (80-99); NEUTROPHILS % (AUTO) 61.7 % (45.0-75.0); PLATELET COUNT 162 K/UL (150-450); RED BLOOD COUNT 5.04 M/UL (4.20-5.40); RED CELL DISTRIBUTION WIDTH 17.9 % (11.6-14.8); WHITE BLOOD COUNT 7.6 K/UL (4.8-10.8)
[2017-11-12 17:24] LABS: ANION GAP 9 mmol/L (5-15); BLOOD UREA NITROGEN 18 mg/dL (7-18); CALCIUM 9.4 MG/DL (8.5-10.1); CARBON DIOXIDE 28 MMOL/L (21-32); CHLORIDE 104 MMOL/L (98-107); POTASSIUM 4.1 MMOL/L (3.5-5.1); SODIUM 141 MMOL/L (136-145)
[2017-11-12 17:26] LABS: INR 1.7 (0.9-1.1)
[2017-11-12 17:37] LABS: ALANINE AMINOTRANSFERASE 19 U/L (12-78); ALBUMIN 3.6 G/DL (3.4-5.0); ALBUMIN/GLOBULIN RATIO 0.8 (1.0-2.7); ALKALINE PHOSPHATASE 93 U/L (46-116); ASPARTATE AMINO TRANSFERASE 21 U/L (15-37); BILIRUBIN,TOTAL 1.3 MG/DL (0.2-1.0); CKMB 0.9 NG/ML (0.0-3.6); CREATINE KINASE 29 U/L (26-308)
[2017-11-12 17:38] LABS: BILIRUBIN,DIRECT 0.6 MG/DL (0.0-0.3)
[2017-11-12 18:30] VITALS: BP 96/46
[2017-11-12] MEDS ORDERED: DOCUSATE SODIU100 MG ORAL (19:11)
[2017-11-12] MEDS ORDERED: ARTIFICIAL TEAR15 ML BOTH EYES (19:11)
[2017-11-12] MEDS ORDERED: ZOLPIDEM TARTRAT5 MG ORAL (19:11)
[2017-11-12] MEDS ORDERED: BISACODYL10 M1 RC (19:12)
[2017-11-12] MEDS ORDERED: FUROSEMIDE40 MG ORAL (19:12)
[2017-11-12] MEDS ORDERED: KLOR-CON M2020 MEQ ORAL (19:16)
[2017-11-12] MEDS ORDERED: METOPROLOL TART25 MG ORAL (19:16)
[2017-11-12] MEDS ORDERED: ALUM-MAG HYDRO360 ML PO (19:16)
[2017-11-12] MEDS ORDERED: MILK OF MA400 MG/51 ORAL (19:16)
[2017-11-12] MEDS ORDERED: PANTOPRAZOLE SO40 MG ORAL (19:17)
[2017-11-12] MEDS ORDERED: XARELTO20 MG ORAL (19:17)
[2017-11-12 19:45] VITALS: BP 105/56
[2017-11-12 22:10] VITALS: BP 107/58
[2017-11-12 23:20] VITALS: BP 106/60
[2017-11-13] VITALS: BP 100/61
[2017-11-13] MEDS ORDERED: Milk of Magnesia 30ml Ud ORAL PRN (01:00)
[2017-11-13] MEDS ORDERED: Artificial Tears 1.4% Op Soln BOTH EYES PRN (01:00)
[2017-11-13] MEDS: Zolpidem 5mg tab ORAL PRN (01:40)
--- NOTE | 2017-11-13 02:45 | History and Physical Report ---
DATE OF ADMISSION: 11/12/2017 HISTORY OF PRESENT ILLNESS: The patient is a pleasant 76-year-old female with a history of atrial fibrillation, good ejection fraction, history of CHF, who resides at rehabilitation center in [facility]. The patient was sent in secondary to palpitations, increasing shortness of breath for further evaluation. She denies any fevers or chills. Denies any cough. No headaches. No sore throat. No abdominal pain. No urinary symptoms. PAST MEDICAL HISTORY: Includes a history of obesity, history of atrial fibrillation, history of CHF, history of anemia, history of GI bleed in the past, history of depressive disorder, and history of anxiety disorder. ALLERGIES: She is allergic to sulfa. SOCIAL HISTORY: She does not smoke, does not drink any alcohol. REVIEW OF SYSTEMS: A 12-point review of systems reviewed negative except for above. PHYSICAL EXAMINATION: GENERAL: She is an elderly obese, seen in the ER, in no apparent distress. VITAL SIGNS: Stable. HEENT: Head is normocephalic and atraumatic. Pupils reactive to light. Extraocular muscles are intact. Eyes are anicteric. NECK: Supple. LUNGS: Clear. HEART: Irregularly irregular. ABDOMEN: Soft. EXTREMITIES: A 1+ edema bilateral lower extremities. LABORATORY DATA: Laboratories were pending. ASSESSMENT AND PLAN: The patient is a 76-year-old female with history of atrial fibrillation, CHF, presents with palpitations, chest pain, and some dyspnea. The patient will be admitted. She is on a . She will be admitted for monitored bed. I have asked Dr. Salas, her forensic social worker, to see her. We will obtain troponins and BNP on her. Continue her on the . The patient should be on DVT and ulcer prophylaxis. Caio Hansen M.D. : DORETHA JOB#: [id number] CC:
[2017-11-13 04:00] VITALS: BP 110/46
[2017-11-13 07:37] LABS: BASOPHILS % (AUTO) 1.3 % (0.0-2.0); EOSINOPHILS % (AUTO) 5.3 % (0.0-3.0); HEMATOCRIT 35.2 % (37.0-47.0); HEMOGLOBIN 11.1 G/DL (12.0-16.0); LYMPHOCYTES % (AUTO) 29.3 % (20.0-45.0); MEAN CORPUSCULAR VOLUME 79 FL (80-99); MONOCYTES % (AUTO) 11.5 % (1.0-10.0); NEUTROPHILS % (AUTO) 52.5 % (45.0-75.0); PLATELET COUNT 148 K/UL (150-450); RED BLOOD COUNT 4.45 M/UL (4.20-5.40); RED CELL DISTRIBUTION WIDTH 18.1 % (11.6-14.8); WHITE BLOOD COUNT 6.4 K/UL (4.8-10.8)
[2017-11-13 07:58] LABS: ALANINE AMINOTRANSFERASE 15 U/L (12-78); ALBUMIN 3.3 G/DL (3.4-5.0); ALBUMIN/GLOBULIN RATIO 0.8 (1.0-2.7); ALKALINE PHOSPHATASE 82 U/L (46-116); ANION GAP 6 mmol/L (5-15); ASPARTATE AMINO TRANSFERASE 18 U/L (15-37); BILIRUBIN,TOTAL 1.3 MG/DL (0.2-1.0); BLOOD UREA NITROGEN 17 mg/dL (7-18); CALCIUM 9.1 MG/DL (8.5-10.1); CARBON DIOXIDE 32 MMOL/L (21-32); CHLORIDE 105 MMOL/L (98-107); CHOLESTEROL 140 MG/DL (< 200); HDL CHOLESTEROL 36 MG/DL (40-60); POTASSIUM 3.7 MMOL/L (3.5-5.1); SODIUM 143 MMOL/L (136-145); TRIGLYCERIDES 83 MG/DL (30-150)
[2017-11-13 08:00] VITALS: BP 104/54
[2017-11-13 08:01] LABS: BILIRUBIN,DIRECT 0.5 MG/DL (0.0-0.3)
--- NOTE | 2017-11-13 08:56 | Diagnostic Imaging Report ---
Indication: Chest pain Technique: One view of the chest Comparison: 10/26/2017 Findings: There is atelectasis and pleural fluid at the right lung base. The heart is markedly enlarged. There is interstitial congestion again demonstrated. Findings are similar to the prior exam Impression: Evidence of congestive heart failure and right pleural effusion, similar to prior study of 10/26/2017
[2017-11-13] MEDS: Metoprolol 25mg tab ORAL SCH ×2 (09:00→21:00)
[2017-11-13] MEDS ORDERED: Furosemide 40mg tab ORAL SCH (09:00)
[2017-11-13] MEDS: Xarelto 10mg tab ORAL SCH (09:29)
[2017-11-13] MEDS: Docusate 100mg cap ORAL SCH ×2 (09:29→18:00)
[2017-11-13 12:00] VITALS: BP 107/60
--- NOTE | 2017-11-13 15:56 | Cardiac Electrophysiology PN ---
Subjective Subjective [id number] Objective Last 24 Hour Vital Signs Date Time Temp Pulse Resp B/P (MAP) Pulse Ox O2 Delivery O2 Flow Rate FiO2 11/13/17 12:00 97.7 80 16 107/60 98 Room Air 97.7 11/13/17 11:43 77 11/13/17 09:29 82 11/13/17 09:00 82 104/54 11/13/17 08:00 97.7 82 20 104/54 95 Room Air 97.7 11/13/17 07:39 78 11/13/17 04:00 73 11/13/17 04:00 97.3 81 20 110/46 92 Room Air 97.3 11/13/17 00:00 97.0 93 23 100/61 94 Room Air 97.0 11/13/17 00:00 83 11/12/17 23:45 97.9 84 17 106/60 99 Room Air 97.9 11/12/17 23:20 97.9 84 17 106/60 99 Room Air 97.9 11/12/17 22:10 82 19 107/58 99 Room Air 11/12/17 19:45 97.8 80 20 105/56 98 Room Air 97.8 11/12/17 18:30 97.4 76 23 96/46 97 Room Air 97.4 11/12/17 16:38 75 22 Room Air 11/12/17 16:38 97.8 75 22 119/58 97 Room Air 97.8 11/12/17 16:28 98.2 80 18 104/76 98 Room Air 98.2 Intake and Output 11/12/17 11/13/17 19:00 07:00 # Voids 1 1 Laboratory Tests Test 11/12/17 16:55 11/12/17 17:04 11/13/17 06:45 Urine Color Yellow Urine Appearance Clear Urine pH 6.5 (4.5-8.0) Urine Specific [place] 1.015 (1.005-1.035) Urine Protein 2+ (NEGATIVE) H Urine Glucose (UA) Negative (NEGATIVE) Urine Ketones Negative (NEGATIVE) Urine Occult Blood 5+ (NEGATIVE) H Urine Nitrite Negative (NEGATIVE) Urine Bilirubin Negative (NEGATIVE) Urine Urobilinogen 4 MG/DL (0.0-1.0) H Urine Leukocyte Esterase 2+ (NEGATIVE) H Urine RBC 10-15 /HPF (0 - 2) H Urine WBC 5-10 /HPF (0 - 2) H Urine Squamous Epithelial Cells Few /LPF (NONE/OCC) Urine Bacteria Few /HPF (NONE) Urine Yeast Few /HPF (NONE) H White Blood Count 7.6 K/UL (4.8-10.8) 6.4 K/UL (4.8-10.8) Red Blood Count 5.04 M/UL (4.20-5.40) 4.45 M/UL (4.20-5.40) Hemoglobin 12.2 G/DL (12.0-16.0) 11.1 G/DL (12.0-16.0) L Hematocrit 39.3 % (37.0-47.0) 35.2 % (37.0-47.0) L Mean Corpuscular Volume 78 FL (80-99) L 79 FL (80-99) L Mean Corpuscular Hemoglobin 24.2 PG (27.0-31.0) L 24.9 PG (27.0-31.0) L Mean Corpuscular Hemoglobin Concent 31.0 G/DL (32.0-36.0) L 31.5 G/DL (32.0-36.0) L Red Cell Distribution Width 17.9 % (11.6-14.8) H 18.1 % (11.6-14.8) H Platelet Count 162 K/UL (150-450) 148 K/UL (150-450) L Mean Platelet Volume 7.7 FL (6.5-10.1) 9.1 FL (6.5-10.1) Neutrophils (%) (Auto) 61.7 % (45.0-75.0) 52.5 % (45.0-75.0) Lymphocytes (%) (Auto) 22.9 % (20.0-45.0) 29.3 % (20.0-45.0) Monocytes (%) (Auto) 11.0 % (1.0-10.0) H 11.5 % (1.0-10.0) H Eosinophils (%) (Auto) 2.8 % (0.0-3.0) 5.3 % (0.0-3.0) H Basophils (%) (Auto) 1.5 % (0.0-2.0) 1.3 % (0.0-2.0) Prothrombin Time 18.2 SEC (9.30-11.50) H Prothromb Time International Ratio 1.7 (0.9-1.1) H Activated Partial Thromboplast Time 41 SEC (23-33) H Sodium Level 141 MMOL/L (136-145) 143 MMOL/L (136-145) Potassium Level 4.1 MMOL/L (3.5-5.1) 3.7 MMOL/L (3.5-5.1) Chloride Level 104 MMOL/L (98-107) 105 MMOL/L (98-107) Carbon Dioxide Level 28 MMOL/L (21-32) 32 MMOL/L (21-32) Anion Gap 9 mmol/L (5-15) 6 mmol/L (5-15) Blood Urea Nitrogen 18 mg/dL (7-18) 17 mg/dL (7-18) Creatinine 1.0 MG/DL (0.55-1.30) 1.0 MG/DL (0.55-1.30) Estimat Glomerular Filtration Rate mL/min (>60) mL/min (>60) Glucose Level 115 MG/DL (74-106) H 128 MG/DL (74-106) H Calcium Level 9.4 MG/DL (8.5-10.1) 9.1 MG/DL (8.5-10.1) Total Bilirubin 1.3 MG/DL (0.2-1.0) H 1.3 MG/DL (0.2-1.0) H Direct Bilirubin 0.6 MG/DL (0.0-0.3) H 0.5 MG/DL (0.0-0.3) H Aspartate Amino Transf (AST/SGOT) 21 U/L (15-37) 18 U/L (15-37) Alanine Aminotransferase (ALT/SGPT) 19 U/L (12-78) 15 U/L (12-78) Alkaline Phosphatase 93 U/L (46-116) 82 U/L (46-116) Total Creatine Kinase 29 U/L (26-308) Creatine Kinase MB 0.9 NG/ML (0.0-3.6) Creatine Kinase MB Relative Index 3.1 Troponin I 0.000 ng/mL (0.000-0.056) 0.000 ng/mL (0.000-0.056) Total Protein 8.0 G/DL (6.4-8.2) 7.3 G/DL (6.4-8.2) Albumin 3.6 G/DL (3.4-5.0) 3.3 G/DL (3.4-5.0) L Globulin 4.4 g/dL 4.0 g/dL Albumin/Globulin Ratio 0.8 (1.0-2.7) L 0.8 (1.0-2.7) L Pro-B-Type Natriuretic Peptide 741 pg/mL (0-125) H Triglycerides Level 83 MG/DL (30-150) Cholesterol Level 140 MG/DL (< 200) LDL Cholesterol 90 mg/dL (<100) HDL Cholesterol 36 MG/DL (40-60) L Cholesterol/HDL Ratio 3.9 (3.3-4.4) Thyroid Stimulating Hormone (TSH) 3.386 uiU/mL (0.358-3.740) Digoxin Level 0.8 NG/ML (0.9-2.0) L Microbiology Date/Time Source Procedure Growth Status 11/12/17 16:55 Urine,Clean Catch Urine Culture - Preliminary Gram Negative Bacillus 1 Resulted Paul Salas MD November 13, 2017 15:56
[2017-11-13 16:00] VITALS: BP 119/74
--- NOTE | 2017-11-13 17:45 | Consultation ---
DATE OF CONSULTATION: 11/13/2017 CARDIOLOGY CONSULTATION CONSULTING PHYSICIAN: Paul Salas M.D. REFERRING PHYSICIAN: Caio Hansen M.D. REASON FOR CONSULTATION: Hypertension, atrial fibrillation, congestive heart failure. HISTORY OF PRESENT ILLNESS: The patient is a 76-year-old lady, who was discharged about two weeks ago from [facility] to a skilled nursing. The patient has history of hypertension, congestive heart failure due to diastolic dysfunction as well as atrial fibrillation, who was at [facility]. The patient was brought in for palpitation and shortness of breath for further evaluation. The patient was found to be in atrial fibrillation and was admitted to telemetry floor. Cardiology consultation was obtained for further evaluation and management. REVIEW OF SYSTEMS: Negative other than what was mentioned in history of present illness. PAST MEDICAL HISTORY: 1. Hypertension. 2. Persistent atrial fibrillation. 3. Congestive heart failure with diastolic dysfunction. 4. Morbid obesity. 5. Anemia and history of GI bleed. 6. Depression. 7. Anxiety disorder. ALLERGIES: The patient is allergic to sulfa. SOCIAL HISTORY: She lives in a skilled nursing. Does not smoke or drink alcohol. PHYSICAL EXAMINATION: VITAL SIGNS: Blood pressure is 107/60, pulse is 80, respirations 18, and she is afebrile. HEAD AND NECK: Showed no JVD. LUNGS: Decreased breath sounds. CARDIOVASCULAR: Shows irregular S1 and S2 with no gallop or murmur. ABDOMEN: Soft. EXTREMITIES: Bilateral 2+ pitting edema. LABORATORY DATA: White count of 6.4, hemoglobin 11.5, hematocrit 35.2, and platelet count of 148,000. Sodium is 142, potassium 3.7, BUN of 17, creatinine 1, glucose of 128. Troponin negative x2. ASSESSMENT AND PLAN: 1. Congestive heart failure exacerbation. Her ejection fraction is normal. It is secondary to diastolic dysfunction. The patient is on Lopressor 25 mg b.i.d. and change the Lasix to 40 mg IV b.i.d. 2. Atrial fibrillation. Rate is controlled on metoprolol 25 b.i.d. and digoxin 0.25 mg daily. The digoxin level is therapeutic. The patient is also on Xarelto 20 mg daily for anticoagulation purposes. 3. Hypokalemia. Potassium was replaced. 4. Anxiety and depression. 5. Hypertension. Continue metoprolol. Thank you very much, Dr. Hansen, for allowing me to participate in the care of this patient. Please do not hesitate to contact me for any questions regarding my evaluation Paul Salas M.D. DR: Brain JOB#: [id number] CC:
--- NOTE | 2017-11-13 18:27 | Cardiology Report ---
APPROVED REPORT EXAM: Two-dimensional and M-mode echocardiogram with Doppler and color Doppler. INDICATION Chest Pain M-Mode DIMENSIONS IVSd1.1 (0.7-1.1cm)Left Atrium (MM)6.2 (1.6-4.0cm) LVDd6.0 (3.5-5.6cm)Aortic Root3.4 (2.0-3.7cm) PWd.2 (0.7-1.1cm)Aortic Cusp Exc.1.3 (1.5-2.0cm) IVSs1.2 cm LVDs4.4 (2.5-4.0cm) PWs1.0 cm Normal left ventricular chamber size, systolic function and wall motion. Left ventricular ejection fraction estimated to be 55-60 %. Mild left ventricular hypertrophy. Large right pleural effusion and posterior to left atrium maybe due to Atelectasis. Moderate bi-atrial enlargement. Mild right ventricular enlargement. Aortic valve calcification with decreased cusp excursion c/w aortic stenosis. Thickened mitral valve leaflets with normal excursion. Mitral annulus and aortic root calcification. Normal pulmonic valve structure. Normal tricuspid valve structure. IVC dilated at 2.5 cm without physiological collapse, estimated RAP is 20 mmHg. A color flow and spectral Doppler study was performed and revealed: Moderate aortic insufficiency. peak aortic valve gradient of 29 mmHg and a mean of 15 mmHg. Aortic valve area 1.3 cm2 calculated by continuity equation suggestive of moderate aortic stenosis. Moderate mitral regurgitation. Left ventricular diastolic function could not be determined due to A-Fib. Moderate tricuspid regurgitation. Tricuspid systolic velocities suggests peak right ventricular systolic pressure of 59 mmHg, consistent with moderate to severe pulmonary hypertension.
[2017-11-13 20:00] VITALS: BP 112/60
--- NOTE | 2017-11-13 22:24 | General Progress Note ---
Assessment/Plan Assessment/Plan chf afib htn depression anxiety hypokalmeia diuresis on metoprolol and xarelto bp controlledpotassium replaced dvt and ulcer prophylaxis Subjective Allergies: Coded Allergies: SULFA (SULFONAMIDE ANTIBIOTICS) (Verified Allergy, Severe, 03/23/15) Subjective breathing better no cp Objective Last 24 Hour Vital Signs Date Time Temp Pulse Resp B/P (MAP) Pulse Ox O2 Delivery O2 Flow Rate FiO2 11/13/17 21:00 80 112/60 11/13/17 20:00 98.2 80 20 112/60 94 Room Air 98.2 11/13/17 16:00 97.4 94 18 119/74 95 Room Air 97.4 11/13/17 15:23 91 11/13/17 12:00 97.7 80 16 107/60 98 Room Air 97.7 11/13/17 11:43 77 11/13/17 09:29 82 11/13/17 09:00 82 104/54 11/13/17 08:00 97.7 82 20 104/54 95 Room Air 97.7 11/13/17 07:39 78 11/13/17 04:00 73 11/13/17 04:00 97.3 81 20 110/46 92 Room Air 97.3 11/13/17 00:00 97.0 93 23 100/61 94 Room Air 97.0 11/13/17 00:00 83 11/12/17 23:45 97.9 84 17 106/60 99 Room Air 97.9 11/12/17 23:20 97.9 84 17 106/60 99 Room Air 97.9 Intake and Output 11/12/17 11/13/17 19:00 07:00 # Voids 1 1 Laboratory Tests 11/13/17 06:45: White Blood Count 6.4, Red Blood Count 4.45, Hemoglobin 11.1L, Hematocrit 35.2L , Mean Corpuscular Volume 79L, Mean Corpuscular Hemoglobin 24.9L, Mean Corpuscular Hemoglobin Concent 31.5L, Red Cell Distribution Width 18.1H, Platelet Count 148L, Mean Platelet Volume 9.1, Neutrophils (%) (Auto) 52.5, Lymphocytes (%) (Auto) 29.3, Monocytes (%) (Auto) 11.5H, Eosinophils (%) (Auto) 5.3H, Basophils (%) (Auto) 1.3, Sodium Level 143, Potassium Level 3.7, Chloride Level 105, Carbon Dioxide Level 32, Anion Gap 6, Blood Urea Nitrogen 17, Creatinine 1.0, Estimat Glomerular Filtration Rate , Glucose Level 128H, Calcium Level 9.1, Total Bilirubin 1.3H, Direct Bilirubin 0.5H, Aspartate Amino Transf (AST/SGOT) 18, Alanine Aminotransferase (ALT/SGPT) 15, Alkaline Phosphatase 82, Troponin I 0.000, Pro-B-Type Natriuretic Peptide 741H, Total Protein 7.3, Albumin 3.3L, Globulin 4.0, Albumin/Globulin Ratio 0.8L, Triglycerides Level 83, Cholesterol Level 140, LDL Cholesterol 90, HDL Cholesterol 36L, Cholesterol/HDL Ratio 3.9, Thyroid Stimulating Hormone (TSH) 3.386, Digoxin Level 0.8L Height (Feet): 6 Height (Inches): 0.00 Weight (Pounds): 223 General Appearance: WD/WN, no apparent distress Neck: supple Cardiovascular: irregularly irregular Respiratory/Chest: crackles/rales Abdomen: soft Objective 1 plus edema Caio Hansen MD November 13, 2017 22:24
[2017-11-14] VITALS: BP 133/66
[2017-11-14] MEDS: Zolpidem 5mg tab ORAL PRN ×2 (01:10→22:16)
[2017-11-14 06:18] LABS: BASOPHILS % (AUTO) 1.8 % (0.0-2.0); EOSINOPHILS % (AUTO) 6.2 % (0.0-3.0); HEMATOCRIT 36.6 % (37.0-47.0); HEMOGLOBIN 11.5 G/DL (12.0-16.0); LYMPHOCYTES % (AUTO) 27.6 % (20.0-45.0); MEAN CORPUSCULAR VOLUME 79 FL (80-99); MONOCYTES % (AUTO) 12.7 % (1.0-10.0); NEUTROPHILS % (AUTO) 51.7 % (45.0-75.0); PLATELET COUNT 165 K/UL (150-450); RED BLOOD COUNT 4.65 M/UL (4.20-5.40); RED CELL DISTRIBUTION WIDTH 18.1 % (11.6-14.8); WHITE BLOOD COUNT 6.9 K/UL (4.8-10.8)
[2017-11-14 06:45] LABS: ANION GAP 9 mmol/L (5-15); BLOOD UREA NITROGEN 15 mg/dL (7-18); CALCIUM 9.1 MG/DL (8.5-10.1); CARBON DIOXIDE 28 MMOL/L (21-32); CHLORIDE 104 MMOL/L (98-107); CREATININE 0.8 MG/DL (0.55-1.30); POTASSIUM 3.3 MMOL/L (3.5-5.1); SODIUM 141 MMOL/L (136-145)
[2017-11-14 08:00] VITALS: BP 111/55
[2017-11-14] MEDS: Metoprolol 25mg tab ORAL SCH ×2 (09:00→21:00)
[2017-11-14] MEDS: Docusate 100mg cap ORAL SCH ×2 (09:16→18:18)
[2017-11-14] MEDS: Xarelto 10mg tab ORAL SCH (09:16)
[2017-11-14 12:00] VITALS: BP 110/52
--- NOTE | 2017-11-14 13:20 | Diagnostic Imaging Report ---
APPROVED REPORT CPT Code: 80342 Present Symptoms Lower Extremity Edema: Bilateral Comments: Pain BILATERAL: Imaging reveals a patent deep venous system bilaterally. There is no evidence of thrombus within the femoral, popliteal or tibial segments. The greater saphenous veins are also within normal limits. Doppler indicates normal spontaneous flow within these segments.
--- NOTE | 2017-11-14 13:26 | Cardiac Electrophysiology PN ---
Assessment/Plan Assessment/Plan 1. Congestive heart failure exacerbation. Her ejection fraction is normal. It is secondary to diastolic dysfunction. The patient is on Lopressor 25 mg b.i.d. and Lasix 40 mg IV b.i.d. 2. Atrial fibrillation. Rate is controlled on metoprolol 25 b.i.d. and digoxin 0.25 mg daily. The digoxin level is therapeutic. On Xarelto 20 mg daily for anticoagulation 3. Hypokalemia. Potassium was replaced. 4. Anxiety and depression. 5. Hypertension. Continue metoprolol and Lasix Subjective Subjective Feeling better on Lasix. No CP or SOB. Objective Last 24 Hour Vital Signs Date Time Temp Pulse Resp B/P (MAP) Pulse Ox O2 Delivery O2 Flow Rate FiO2 11/14/17 12:00 97.9 82 19 110/52 96 Room Air 97.9 11/14/17 09:16 76 11/14/17 09:00 76 111/55 11/14/17 08:00 97.7 76 21 111/55 94 Room Air 97.7 11/14/17 07:26 85 11/14/17 04:00 79 11/14/17 00:00 97.3 95 20 133/66 96 Room Air 97.3 11/14/17 00:00 92 11/13/17 21:00 80 112/60 11/13/17 20:00 98.2 80 20 112/60 94 Room Air 98.2 11/13/17 20:00 78 11/13/17 16:00 97.4 94 18 119/74 95 Room Air 97.4 11/13/17 15:23 91 Intake and Output 11/13/17 11/14/17 19:00 07:00 Intake Total 490 ml Output Total 800 ml Balance -310 ml Intake Oral 490 ml Output Urine Total 800 ml # Voids 5 # Bowel Movements 2 Laboratory Tests Test 11/14/17 05:00 11/14/17 05:23 White Blood Count 6.9 K/UL (4.8-10.8) Red Blood Count 4.65 M/UL (4.20-5.40) Hemoglobin 11.5 G/DL (12.0-16.0) L Hematocrit 36.6 % (37.0-47.0) L Mean Corpuscular Volume 79 FL (80-99) L Mean Corpuscular Hemoglobin 24.6 PG (27.0-31.0) L Mean Corpuscular Hemoglobin Concent 31.3 G/DL (32.0-36.0) L Red Cell Distribution Width 18.1 % (11.6-14.8) H Platelet Count 165 K/UL (150-450) Mean Platelet Volume 8.7 FL (6.5-10.1) Neutrophils (%) (Auto) 51.7 % (45.0-75.0) Lymphocytes (%) (Auto) 27.6 % (20.0-45.0) Monocytes (%) (Auto) 12.7 % (1.0-10.0) H Eosinophils (%) (Auto) 6.2 % (0.0-3.0) H Basophils (%) (Auto) 1.8 % (0.0-2.0) Sodium Level 141 MMOL/L (136-145) Potassium Level 3.3 MMOL/L (3.5-5.1) L Chloride Level 104 MMOL/L (98-107) Carbon Dioxide Level 28 MMOL/L (21-32) Anion Gap 9 mmol/L (5-15) Blood Urea Nitrogen 15 mg/dL (7-18) Creatinine 0.8 MG/DL (0.55-1.30) Estimat Glomerular Filtration Rate mL/min (>60) Glucose Level 96 MG/DL (74-106) Calcium Level 9.1 MG/DL (8.5-10.1) Magnesium Level 2.1 MG/DL (1.8-2.4) Pro-B-Type Natriuretic Peptide 657 pg/mL (0-125) H Microbiology Date/Time Source Procedure Growth Status 11/12/17 16:55 Urine,Clean Catch Urine Culture - Final Escherichia Coli Complete Objective HEAD AND NECK: Showed no JVD. LUNGS: Decreased breath sounds. CARDIOVASCULAR: Shows irregular S1 and S2 with no gallop or murmur. ABDOMEN: Soft. EXTREMITIES: Bilateral 2+ pitting edema. Paul Saals MD November 14, 2017 13:26
[2017-11-14 16:00] VITALS: BP 110/53
--- NOTE | 2017-11-14 17:10 | Cardiology Report ---
APPROVED REPORT EKG Measurement Heart [id number] Atrial fibrillation Cannot rule out Anterior infarct, age undetermined Abnormal ECG
[2017-11-14 20:00] VITALS: BP 105/62
[2017-11-15] VITALS: BP 110/71
[2017-11-15 04:00] VITALS: BP 111/64
[2017-11-15 08:00] VITALS: BP 115/51
[2017-11-15] MEDS: Xarelto 10mg tab ORAL SCH (09:15)
[2017-11-15] MEDS: Metoprolol 25mg tab ORAL SCH ×2 (09:16→22:27)
[2017-11-15] MEDS: Docusate 100mg cap ORAL SCH ×2 (09:16→17:38)
[2017-11-15 12:00] VITALS: BP 115/57
[2017-11-15 16:00] VITALS: BP 115/92
--- NOTE | 2017-11-15 16:03 | Cardiac Electrophysiology PN ---
Assessment/Plan Assessment/Plan 1. Congestive heart failure exacerbation due to diastolic dysfunction with nl EF. The patient is on Lopressor 25 mg b.i.d. and Lasix 40 mg IV b.i.d. 2. Atrial fibrillation. Rate is controlled on metoprolol 25 b.i.d. and digoxin 0.25 mg daily. The digoxin level is therapeutic. On Xarelto 20 mg daily for anticoagulation 3. Hypokalemia. Potassium was replaced. 4. Anxiety and depression. 5. Hypertension. Continue metoprolol and Lasix Subjective Subjective Feeling better on Lasix. No CP or SOB.On tele.In fib with controlled rate Objective Last 24 Hour Vital Signs Date Time Temp Pulse Resp B/P (MAP) Pulse Ox O2 Delivery O2 Flow Rate FiO2 11/15/17 12:00 97.4 80 18 115/57 94 Room Air 97.4 11/15/17 09:16 89 11/15/17 09:16 89 115/51 11/15/17 08:00 97.2 89 18 115/51 95 Room Air 97.2 11/15/17 04:00 84 11/15/17 04:00 96.3 69 22 111/64 97 Room Air 96.3 11/15/17 00:00 80 11/15/17 00:00 98.2 79 20 110/71 96 Room Air 98.2 11/14/17 21:00 86 105/62 11/14/17 20:00 97.7 86 19 105/62 94 Room Air 97.7 11/14/17 20:00 82 11/14/17 16:00 97.7 101 20 110/53 96 Room Air 97.7 Intake and Output 11/14/17 11/15/17 19:00 07:00 Intake Total 700 ml Output Total 3 ml Balance 697 ml Intake Oral 700 ml Output Urine Total 3 ml # Voids 1 # Bowel Movements 1 Microbiology Date/Time Source Procedure Growth Status 11/12/17 23:00 Nasal Nares MRSA Culture - Final NO METHICILLIN RESISTANT STAPH AUREUS... Complete 11/12/17 16:55 Urine,Clean Catch Urine Culture - Final Escherichia Coli Complete 11/12/17 23:00 Rectum VRE Culture - Final NO VANCOMYCIN RESISTANT ENTEROCOCCUS ... Complete Objective HEAD AND NECK: Showed no JVD. LUNGS: Decreased breath sounds. CARDIOVASCULAR: Shows irregular S1 and S2 with no gallop or murmur. ABDOMEN: Soft. EXTREMITIES: Bilateral 2+ pitting edema. Paul Salas MD November 15, 2017 16:03
[2017-11-15 20:00] VITALS: BP 115/64
[2017-11-15] MEDS ORDERED: Milk of Magnesia 30ml Ud ORAL PRN (21:30)
[2017-11-15] MEDS: Zolpidem 5mg tab ORAL PRN (22:27)
[2017-11-16] VITALS: BP 131/80
[2017-11-16 04:00] VITALS: BP 110/53
[2017-11-16 07:44] LABS: BASOPHILS % (AUTO) 1.3 % (0.0-2.0); EOSINOPHILS % (AUTO) 5.8 % (0.0-3.0); HEMATOCRIT 36.7 % (37.0-47.0); HEMOGLOBIN 11.5 G/DL (12.0-16.0); LYMPHOCYTES % (AUTO) 23.7 % (20.0-45.0); MEAN CORPUSCULAR VOLUME 79 FL (80-99); MONOCYTES % (AUTO) 12.9 % (1.0-10.0); NEUTROPHILS % (AUTO) 56.3 % (45.0-75.0); PLATELET COUNT 162 K/UL (150-450); RED BLOOD COUNT 4.63 M/UL (4.20-5.40); WHITE BLOOD COUNT 7.4 K/UL (4.8-10.8)
[2017-11-16 08:00] VITALS: BP 104/52
[2017-11-16 08:10] LABS: ALANINE AMINOTRANSFERASE 17 U/L (12-78); ALBUMIN 3.4 G/DL (3.4-5.0); ALBUMIN/GLOBULIN RATIO 0.8 (1.0-2.7); ALKALINE PHOSPHATASE 83 U/L (46-116); ANION GAP 9 mmol/L (5-15); ASPARTATE AMINO TRANSFERASE 23 U/L (15-37); BLOOD UREA NITROGEN 17 mg/dL (7-18); CALCIUM 9.1 MG/DL (8.5-10.1); CARBON DIOXIDE 29 MMOL/L (21-32); CHLORIDE 103 MMOL/L (98-107); POTASSIUM 3.7 MMOL/L (3.5-5.1); SODIUM 141 MMOL/L (136-145)
[2017-11-16] MEDS ORDERED: Artificial Tears 1.4% Op Soln BOTH EYES PRN (09:00)
[2017-11-16] MEDS: Docusate 100mg cap ORAL SCH ×2 (09:08→17:34)
[2017-11-16] MEDS: Metoprolol 25mg tab ORAL SCH ×2 (09:09→20:59)
[2017-11-16] MEDS: Xarelto 10mg tab ORAL SCH (09:10)
[2017-11-16 12:00] VITALS: BP 111/72
--- NOTE | 2017-11-16 14:47 | Discharge Summary ---
Discharge Summary Discharge Summary _ DATE OF ADMISSION: 11/12/2017 DATE OF DISCHARGE: 11/16/2017 REASON FOR ADMISSION: [] 76 years old female with past medical history significant for congestive heart failure due to diastolic dysfunction, atrial fibrillation, hypertension, anxiety, depression, was recently discharged from the [facility] to the care home home. She was brought for valuation due to shortness of breath and palpitations. Vital signs were stable, pulse oximetry was stable on room air. EKG revealed atrial fibrillation with controlled rate in 80s. Chest x-ray revealed evidence of congestive heart failure. Troponin was negative. Pro BNP 741. No leukocytosis, stable hemoglobin and hematocrit. Patient with DNR/DNI status. Patient admitted with congestive heart failure exacerbation ,secondary to diastolic dysfunction, atrial fibrillation hypertension. CONSULTANTS: us customs and border officer Dr. Salas HOSPITAL COURSE: Patient admitted to monitored floor. Serial troponin were negative. EKG revealed atrial fibrillation with controlled ventricular rate, on telemetry no acute ischemic changes. Patient was ruled out for acute ME. President And Chief Executive Officer closely followed. Echocardiogram revealed preserved ejection fraction of 55-60 %, mild left ventricular hypertrophy, large right pleural effusion, right ventricular systolic pressure of 59, consistent with moderate to severe pulmonary hypertension. Moderate mitral regurgitation, moderate tricuspid regurgitation, moderate aortic stenosis were noted. Venous duplex bilateral lower extremities was negative. Patient was on anti-failure medication regimen consisting of beta matt and intravenous Lasix. Cardiorenal parameters and volumes were closely monitored. Rate was controlled with beta matt and digoxin. Digoxin level was therapeutic. Xarelto for anticoagulation was continued. No evidence of bleeding. Stable hemoglobin and hematocrit. Renal parameters and electrolytes were closely monitored. Electrolytes corrected as needed. Potassium stable after replacement. Blood pressure was stable with current antihypertensive regimen. Supplemental oxygen was on standby as needed to keep pulse oximetry above 92% along with bronchodilator treatment. Bowel regimen instituted. GI prophylaxis provided. Patient clinically stabilized: no chest pain, no shortness of breath, no palpitations, pulse oximetry stable on room air. Patient was stable for transfer to care home facility FINAL DIAGNOSES: Congestive heart failure exacerbation secondary to diastolic dysfunction Atrial fibrillation Hypokalemia Hypertension Anxiety and depression DISCHARGE MEDICATIONS: See Medication Reconciliation list. DISCHARGE INSTRUCTIONS Patient was discharged to care home facility, follow-up with healthcare provider at the facility. I have been assigned to dictate discharge summary for this account. I was not involved in the patient's management. Gayle Singleton NP November 16, 2017 14:47
--- NOTE | 2017-11-16 14:51 | Cardiac Electrophysiology PN ---
Assessment/Plan Assessment/Plan 1. Congestive heart failure exacerbation due to diastolic dysfunction with nl EF. On Lopressor 25 mg b.i.d. and increase Lasix to 60 mg IV b.i.d. Repeat CXR. Doesn't want to go back to tele. 2. Atrial fibrillation. Rate is controlled on metoprolol 25 b.i.d. and digoxin 0.25 mg daily. The digoxin level is therapeutic. On Xarelto 20 mg daily for anticoagulation 3. Hypokalemia. Potassium was replaced. 4. Anxiety and depression. 5. Hypertension. Continue metoprolol and Lasix BRITTA RN at bedside Subjective Subjective Transferred to [facility]. Now complaining of CP and SOB. Objective Last 24 Hour Vital Signs Date Time Temp Pulse Resp B/P (MAP) Pulse Ox O2 Delivery O2 Flow Rate FiO2 11/16/17 12:00 97.7 85 22 111/72 97 Room Air 97.7 11/16/17 09:09 76 104/52 11/16/17 09:09 76 11/16/17 08:00 97.2 76 22 104/52 95 Room Air 97.2 11/16/17 04:00 98.1 75 20 110/53 96 98.1 11/16/17 00:00 98.1 98 20 131/80 98 98.1 11/15/17 22:27 82 115/64 11/15/17 20:00 97.9 82 20 115/64 96 Room Air 97.9 11/15/17 16:00 83 11/15/17 16:00 97.2 91 18 115/92 96 Room Air 97.2 Intake and Output 11/15/17 11/16/17 19:00 07:00 Intake Total 360 ml 350 ml Output Total 400 ml Balance -40 ml 350 ml Intake Oral 360 ml 350 ml Output Urine Total 400 ml # Voids 1 3 # Bowel Movements 1 2 Laboratory Tests Test 11/16/17 06:35 White Blood Count 7.4 K/UL (4.8-10.8) Red Blood Count 4.63 M/UL (4.20-5.40) Hemoglobin 11.5 G/DL (12.0-16.0) L Hematocrit 36.7 % (37.0-47.0) L Mean Corpuscular Volume 79 FL (80-99) L Mean Corpuscular Hemoglobin 24.9 PG (27.0-31.0) L Mean Corpuscular Hemoglobin Concent 31.3 G/DL (32.0-36.0) L Red Cell Distribution Width 18.0 % (11.6-14.8) H Platelet Count 162 K/UL (150-450) Mean Platelet Volume 9.3 FL (6.5-10.1) Neutrophils (%) (Auto) 56.3 % (45.0-75.0) Lymphocytes (%) (Auto) 23.7 % (20.0-45.0) Monocytes (%) (Auto) 12.9 % (1.0-10.0) H Eosinophils (%) (Auto) 5.8 % (0.0-3.0) H Basophils (%) (Auto) 1.3 % (0.0-2.0) Sodium Level 141 MMOL/L (136-145) Potassium Level 3.7 MMOL/L (3.5-5.1) Chloride Level 103 MMOL/L (98-107) Carbon Dioxide Level 29 MMOL/L (21-32) Anion Gap 9 mmol/L (5-15) Blood Urea Nitrogen 17 mg/dL (7-18) Creatinine 1.0 MG/DL (0.55-1.30) Estimat Glomerular Filtration Rate mL/min (>60) Glucose Level 109 MG/DL (74-106) H Calcium Level 9.1 MG/DL (8.5-10.1) Magnesium Level 2.1 MG/DL (1.8-2.4) Total Bilirubin 1.0 MG/DL (0.2-1.0) Aspartate Amino Transf (AST/SGOT) 23 U/L (15-37) Alanine Aminotransferase (ALT/SGPT) 17 U/L (12-78) Alkaline Phosphatase 83 U/L (46-116) Pro-B-Type Natriuretic Peptide 682 pg/mL (0-125) H Total Protein 7.6 G/DL (6.4-8.2) Albumin 3.4 G/DL (3.4-5.0) Globulin 4.2 g/dL Albumin/Globulin Ratio 0.8 (1.0-2.7) L Objective HEAD AND NECK: Showed no JVD. LUNGS: Decreased breath sounds.Rales Right lug base CARDIOVASCULAR: Shows irregular S1 and S2 ABDOMEN: Soft. EXTREMITIES: Bilateral 2+ pitting edema. Paul Salas MD November 16, 2017 14:51
[2017-11-16] MEDS ORDERED: Albuterol/Ipratropium 3ml neb HHN ONE (15:20)
[2017-11-16 16:00] VITALS: BP 100/56
[2017-11-16 20:00] VITALS: BP 121/93
--- NOTE | 2017-11-16 21:43 | General Progress Note ---
Assessment/Plan Assessment/Plan chf afib htn depression anxiety hypokalmeia diuresis with iv lasix check cxr on metoprolol on xarelto bp controlled potassium replaced dvt and ulcer prophylaxis Subjective Allergies: Coded Allergies: SULFA (SULFONAMIDE ANTIBIOTICS) (Verified Allergy, Severe, 03/23/15) Subjective was to be dcd today but developed dyspnea and cp Objective Last 24 Hour Vital Signs Date Time Temp Pulse Resp B/P (MAP) Pulse Ox O2 Delivery O2 Flow Rate FiO2 11/16/17 20:59 96 121/93 11/16/17 20:22 96 18 Room Air 11/16/17 20:00 98.1 76 19 121/93 96 98.1 11/16/17 16:05 97 18 97 Room Air 11/16/17 16:00 97.5 76 26 100/56 95 Room Air 97.5 11/16/17 15:59 98 18 Room Air 11/16/17 15:58 97 18 96 Room Air 21 11/16/17 12:00 97.7 85 22 111/72 97 Room Air 97.7 11/16/17 09:09 76 104/52 11/16/17 09:09 76 11/16/17 08:00 97.2 76 22 104/52 95 Room Air 97.2 11/16/17 04:00 98.1 75 20 110/53 96 98.1 11/16/17 00:00 98.1 98 20 131/80 98 98.1 11/15/17 22:27 82 115/64 Intake and Output 11/15/17 11/16/17 19:00 07:00 Intake Total 360 ml 350 ml Output Total 400 ml Balance -40 ml 350 ml Intake Oral 360 ml 350 ml Output Urine Total 400 ml # Voids 1 3 # Bowel Movements 1 2 Laboratory Tests 11/16/17 06:35: White Blood Count 7.4, Red Blood Count 4.63, Hemoglobin 11.5L, Hematocrit 36.7L , Mean Corpuscular Volume 79L, Mean Corpuscular Hemoglobin 24.9L, Mean Corpuscular Hemoglobin Concent 31.3L, Red Cell Distribution Width 18.0H, Platelet Count 162, Mean Platelet Volume 9.3, Neutrophils (%) (Auto) 56.3, Lymphocytes (%) (Auto) 23.7, Monocytes (%) (Auto) 12.9H, Eosinophils (%) (Auto) 5.8H, Basophils (%) (Auto) 1.3, Sodium Level 141, Potassium Level 3.7, Chloride Level 103, Carbon Dioxide Level 29, Anion Gap 9, Blood Urea Nitrogen 17, Creatinine 1.0, Estimat Glomerular Filtration Rate , Glucose Level 109H, Calcium Level 9.1, Magnesium Level 2.1, Total Bilirubin 1.0, Aspartate Amino Transf (AST/SGOT) 23, Alanine Aminotransferase (ALT/SGPT) 17, Alkaline Phosphatase 83, Pro-B-Type Natriuretic Peptide 682H, Total Protein 7.6, Albumin 3.4, Globulin 4.2, Albumin/Globulin Ratio 0.8L Height (Feet): 6 Height (Inches): 0.00 Weight (Pounds): 218 General Appearance: WD/WN Neck: supple Cardiovascular: irregularly irregular Respiratory/Chest: lungs clear Abdomen: soft Objective 1 plus edema Caio Hansen MD November 16, 2017 21:43
[2017-11-16] MEDS: Zolpidem 5mg tab ORAL PRN (22:38)
[2017-11-17] VITALS: BP 96/59
[2017-11-17 04:00] VITALS: BP 112/63
[2017-11-17 08:00] VITALS: BP 108/58
[2017-11-17] MEDS: Docusate 100mg cap ORAL SCH ×2 (09:08→17:54)
[2017-11-17] MEDS: Metoprolol 25mg tab ORAL SCH ×2 (09:08→21:19)
[2017-11-17] MEDS: Xarelto 10mg tab ORAL SCH (09:09)
[2017-11-17 12:00] VITALS: BP 101/58
--- NOTE | 2017-11-17 15:46 | Cardiac Electrophysiology PN ---
Assessment/Plan Assessment/Plan 1. Congestive heart failure exacerbation due to diastolic dysfunction with nl EF. On Lopressor 25 mg b.i.d. and Lasix to 60 mg IV b.i.d. 2. Atrial fibrillation. Rate is controlled on metoprolol 25 b.i.d. and digoxin 0.25 mg daily. The digoxin level is therapeutic. On Xarelto 20 mg daily for anticoagulation 3. Hypokalemia. Potassium was replaced. 4. Anxiety and depression. 5. Hypertension. Continue metoprolol and Lasix BRITTA RN Subjective Subjective Feeling better. Just feels weak. Objective Last 24 Hour Vital Signs Date Time Temp Pulse Resp B/P (MAP) Pulse Ox O2 Delivery O2 Flow Rate FiO2 11/17/17 12:00 97.7 82 18 101/58 96 Room Air 97.7 11/17/17 09:08 74 108/58 11/17/17 09:08 74 11/17/17 08:06 89 16 Room Air 11/17/17 08:00 97.8 74 19 108/58 99 Room Air 97.8 11/17/17 04:00 97.7 86 19 112/63 96 97.7 11/17/17 00:00 97.5 87 19 96/59 94 97.5 11/16/17 20:59 96 121/93 11/16/17 20:22 96 18 Room Air 11/16/17 20:00 98.1 76 19 121/93 96 98.1 11/16/17 16:05 97 18 97 Room Air 11/16/17 16:00 97.5 76 26 100/56 95 Room Air 97.5 11/16/17 15:59 98 18 Room Air 11/16/17 15:58 97 18 96 Room Air 21 Intake and Output 11/16/17 11/17/17 19:00 07:00 Intake Total 800 ml Balance 800 ml Intake Oral 800 ml # Voids 3 2 Laboratory Tests Test 11/17/17 07:20 Troponin I 0.000 ng/mL (0.000-0.056) Objective HEAD AND NECK: Showed no JVD. LUNGS: Decreased breath sounds.Rales Right lug base CARDIOVASCULAR: Shows irregular S1 and S2 ABDOMEN: Soft. EXTREMITIES: Bilateral 2+ pitting edema. Paul Salas MD November 17, 2017 15:46
[2017-11-17 16:00] VITALS: BP 102/51
--- NOTE | 2017-11-17 17:02 | General Progress Note ---
Assessment/Plan Assessment/Plan chf afib htn depression anxiety hypokalmeia diuresis with iv lasix check cxr on metoprolol on xarelto bp controlled potassium replaced dvt and ulcer prophylaxis dc plans when ok with cardiology possibly tomorrow Subjective Allergies: Coded Allergies: SULFA (SULFONAMIDE ANTIBIOTICS) (Verified Allergy, Severe, 03/23/15) Subjective breathing improved Objective Last 24 Hour Vital Signs Date Time Temp Pulse Resp B/P (MAP) Pulse Ox O2 Delivery O2 Flow Rate FiO2 11/17/17 16:00 98.0 77 18 102/51 100 Room Air 98.0 11/17/17 12:00 97.7 82 18 101/58 96 Room Air 97.7 11/17/17 09:08 74 108/58 11/17/17 09:08 74 11/17/17 08:06 89 16 Room Air 11/17/17 08:00 97.8 74 19 108/58 99 Room Air 97.8 11/17/17 04:00 97.7 86 19 112/63 96 97.7 11/17/17 00:00 97.5 87 19 96/59 94 97.5 11/16/17 20:59 96 121/93 11/16/17 20:22 96 18 Room Air 11/16/17 20:00 98.1 76 19 121/93 96 98.1 Intake and Output 11/16/17 11/17/17 19:00 07:00 Intake Total 800 ml Balance 800 ml Intake Oral 800 ml # Voids 3 2 Laboratory Tests 11/17/17 07:20: Troponin I 0.000 Height (Feet): 6 Height (Inches): 0.00 Weight (Pounds): 221 General Appearance: WD/WN Neck: supple Cardiovascular: normal rate Respiratory/Chest: lungs clear Abdomen: soft Objective 1 plus edema Caio Hansen MD November 17, 2017 17:02
[2017-11-17 20:00] VITALS: BP 102/51
[2017-11-17] MEDS: Zolpidem 5mg tab ORAL PRN (22:58)
[2017-11-18] VITALS: BP 110/62
[2017-11-18 04:00] VITALS: BP 118/55
[2017-11-18 08:00] VITALS: BP 90/52
[2017-11-18 08:39] VITALS: BP 101/51
[2017-11-18] MEDS: Metoprolol 25mg tab ORAL SCH (09:00)
[2017-11-18] MEDS: Docusate 100mg cap ORAL SCH (09:00)
[2017-11-18] MEDS: Xarelto 10mg tab ORAL SCH (09:02)
[2017-11-18 12:00] VITALS: BP 92/59
[2017-11-18 16:05] VITALS: BP 117/60
== END 2017-11-18 17:00 | DRG 293 ==
LOC: EDBD 16:32 → EMR 19:09 → 2E 19:11 → OBSVTOIN 19:11 → INTOOBSV 19:11 → EDBEDREQ 21:50 → 4E 11-15 21:27
DX: I11.0 Hypertensive heart disease with heart failure (principal); I50.33 Acute on chronic diastolic (congestive) heart failure; E87.6 Hypokalemia; I48.91 Unspecified atrial fibrillation; I27.20 Pulmonary hypertension, unspecified; Z66 Do not resuscitate; Z88.2 Allergy status to sulfonamides; I34.0 Nonrheumatic mitral (valve) insufficiency; I36.1 Nonrheumatic tricuspid (valve) insufficiency; I35.0 Nonrheumatic aortic (valve) stenosis; E66.01 Morbid (severe) obesity due to excess calories; Z79.01 Long term (current) use of anticoagulants; F41.8 Other specified anxiety disorders; I25.10 Atherosclerotic heart disease of native coronary artery without angina pectoris; H81.09 Meniere's disease, unspecified ear
CPT/HCPCS: 36415; 71045; 80048; 80053; 80061; 80162; 81003; 82248; 82550; 82553; 83735; 83880; 84443; 84484; 85025; 85610; 85730; 87081; 87086; 87181; 93005; 93306; 93970; 94640; 94664; 99285; J7620; J8499